=== PATIENT | male | born 1945 | race Caucasian/White ===

== ENCOUNTER → 2019-08-17 10:34 | Outpatient (BNVA) | payer MEDICARE, OTHER, SELFPAY | PROVIDERS: PCP Nurse Practitioner Family; Visit Provider Nurse Practitioner Family | DX: I12.9 Hypertensive chronic kidney disease with stage 1 through stage 4 chronic kidney disease, or unspecified chronic kidney disease (principal); N18.3 Chronic kidney disease, stage 3 (moderate); E78.2 Mixed hyperlipidemia; E55.9 Vitamin D deficiency, unspecified; R73.9 Hyperglycemia, unspecified; Z87.891 Personal history of nicotine dependence; Z53.20 Procedure and treatment not carried out because of patient's decision for unspecified reasons | CPT/HCPCS: 80053; 80061; 82306; 83036; 85025 ==

== ENCOUNTER → 2020-02-15 11:43 | Outpatient (BNVA) | payer MEDICARE, OTHER, SELFPAY | PROVIDERS: PCP Nurse Practitioner Family; Visit Provider Nurse Practitioner Family | DX: I10 Essential (primary) hypertension (principal); E78.2 Mixed hyperlipidemia; E55.9 Vitamin D deficiency, unspecified; R60.0 Localized edema; Z68.30 Body mass index [BMI] 30.0-30.9, adult; F17.220 Nicotine dependence, chewing tobacco, uncomplicated | CPT/HCPCS: 80053; 80061; 82306; 85025 ==

== ENCOUNTER → 2020-03-02 09:46 | Outpatient (BNVA) | payer MEDICARE, OTHER, SELFPAY | PROVIDERS: PCP Nurse Practitioner Family; Visit Provider Nurse Practitioner Family | DX: R73.9 Hyperglycemia, unspecified (principal); E78.2 Mixed hyperlipidemia; I12.9 Hypertensive chronic kidney disease with stage 1 through stage 4 chronic kidney disease, or unspecified chronic kidney disease; N18.3 Chronic kidney disease, stage 3 (moderate); R60.0 Localized edema; Z68.30 Body mass index [BMI] 30.0-30.9, adult; F17.220 Nicotine dependence, chewing tobacco, uncomplicated; Z71.89 Other specified counseling | CPT/HCPCS: 83036 ==

== ENCOUNTER → 2020-04-06 09:23 | Outpatient (BNVA) | payer MEDICARE, OTHER, SELFPAY | PROVIDERS: PCP Nurse Practitioner Family; Visit Provider Urology | DX: R33.9 Retention of urine, unspecified (principal); C61 Malignant neoplasm of prostate; N35.012 Post-traumatic membranous urethral stricture | CPT/HCPCS: 81001; 84153 ==

== ENCOUNTER → 2020-08-08 09:07 | Outpatient (BNVA) | payer MEDICARE, OTHER, SELFPAY | PROVIDERS: PCP Nurse Practitioner Family; Visit Provider Nurse Practitioner Family | DX: I10 Essential (primary) hypertension (principal); R73.9 Hyperglycemia, unspecified | CPT/HCPCS: 80053; 80061; 83036; 85025 ==

== ENCOUNTER 2021-01-13 10:28 | Inpatient (IN) | payer MEDICARE, OTHER, SELFPAY ==
[2021-01-13] VITALS (12 sets, daily range): BP systolic 101–152; BP diastolic 59–96; PULSE 72–124; RESP 14–29; TEMP 36.6–37.3; O2SAT 93–99; BMI 31.5
--- NOTE | 2021-01-13 10:37 | ECG_ITS ---
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 Measurements Intervals [place] Rate: 113 P: NV: QRS: 33 QRSD: 92 T: 29 QT: 313 QTc: 429 Interpretive Statements ATRIAL FIBRILLATION WITH RAPID VENTRICULAR RESPONSE NONSPECIFIC ST & T-WAVE ABNORMALITY ABNORMAL RHYTHM ECG No previous ECG available for comparison Electronically Signed On 01-14-2021 23:03:50 CDT by Divya Hill M.D. [id number]
--- NOTE | 2021-01-13 10:37 | XR_ITS ---
WS: [id number] Portable AP upright chest, 01/13/2021 Clinical Data: dyspnea/cough Comparison: None. Findings: No nodules, masses or effusions are seen. The heart is normal. The pulmonary vascularity is not increased. No pneumonia or pneumothorax is seen. The aortic arch and descending aorta were tortu ous. XR/XR chest 1V portable [id number] Impression: Atherosclerosis
--- NOTE | 2021-01-13 10:38 | W.ED.GENADLT ---
HPI - General Adult General: Chief complaint: Dizziness Stated complaint: WEAKNESS/ DIZZINESS/ FALLS Time Seen by Provider: 01/13/21 10:31 History of Present Illness: HPI narrative: 75-year-old male presents emergency room with complaints of generalized weakness and dizziness. He fell last night and basically was down overnight around 10 hours. He was unable to get up he does not relate any particular pain anywhere but he does relate some weakness to his left arm. His started on arrival in the monitor to appear to be in atrial fibrillation. He denies any chest pain EMS reported he was 89% in the field however on room air here he is 96-97% Onset (ago): hour(s) Severity: moderate Relieving factors: rest Exacerbating factors: none Associated symptoms: Deny chest pain, confusion, cough, diaphoresis, decreased appetite, dyspnea, fevers/chills, headache(s), malaise, nausea, rash, palpitations, seizures, short of breath, syncope, vomiting or weakness Treatments prior to arrival: none Review of Systems Const: Denies: malaise or diaphoresis ENMT: Denies: throat pain, ear or mastoid pain, nasal discharge or nasal congestion Card: Denies: chest pain, palpitations or syncope Resp: Denies: dyspnea GI: Denies: nausea or vomiting : Denies: flank pain, dysuria, urinary frequency or urinary urgency Skin/Breast: Denies: rash Neuro: Denies: headache(s) or confusion PFS ED PFSH: Medical History Bilateral primary osteoarthritis of knee CA of prostate diagnosed August 2007 History of radiotherapy Chronic kidney disease, stage 3 (moderate) Essential (primary) hypertension GERD (gastroesophageal reflux disease) History of skin cancer Hyperglycemia Mixed hyperlipidemia Post-traumatic membranous urethral stricture Psoriasis Vitamin D deficiency Surgical History History of prostate biopsy Hx of vasectomy Family History Father , age 80 CAD (coronary artery disease) Mother , age 71 CAD (coronary artery disease) Social History Smoking and tobacco status: current every day smoker smokeless tobacco Smokeless tobacco user: chewing tobacco Smokeless tobacco details: chewing approx 12 yrs Second hand smoke exposure: No Alcohol intake: current Alcohol intake frequency: 3 or more drinks per day Alcohol type: beer and hard liquor Lives independently: Yes Household members: none Marital status: service: Yes branch: [employer] Current occupational status: retired History of recent travel: No Current gender identity: Male Physical Exam Const: COMMON NORMALS: no acute distress GENERAL APPEARANCE: cooperative and comfortable ORIENTATION/CONSCIOUSNESS: Yes awake, Yes oriented to person, Yes oriented to place and Yes oriented to time HENMT: COMMON NORMALS: normocephalic, atraumatic and hearing grossly normal bilaterally HEAD & SCALP: normocephalic and atraumatic Neck/C-Spine: COMMON NORMALS: no JVD Resp: COMMON NORMALS: normal respiratory effort, No retractions, No use of accessory muscles and clear to auscultation bilaterally AUSCULTATION: clear to auscultation bilaterally Cardio: COMMON NORMALS: no JVD, regular rate, regular rhythm and No murmurs present (Cardio) RATE: regular rate RHYTHM: regular rhythm GI: COMMON NORMALS: Soft to palpation and No hepatosplenomegaly present AUSCULTATION: Yes normoactive bowel sounds PALPATION: Yes Soft to palpation, No Tenderness to palpation present (GI), No Guarding due to palpation present (GI) and Yes No hepatosplenomegaly present Extremity: COMMON NORMALS: normal to inspection, capillary refill normal, no clubbing, cyanosis or edema, no calf tenderness and no pedal edema Neuro: SENSORIUM/ORIENTATION: Yes oriented to person, Yes oriented to place and Yes oriented to time Skin: COMMON NORMALS: no rashes or lesions noted GENERAL SKIN EXAM: no rashes or lesions noted Course Vital Signs: Vital signs: Vital Signs Temperature 97.8 F 01/14/21 11:14 Pulse Rate 82 01/14/21 11:14 Respiratory Rate 28 H 01/14/21 11:14 Blood Pressure 115/64 01/14/21 11:14 Pulse Oximetry 99 01/14/21 11:14 MDM - General Adult MDM Narrative: Medical decision making narrative: Patient has rhabdomyolysis acute on chronic kidney injury with the fall generalized weakness unable to stand and go ahead and admit him discussed Dr. Paulino. Lab Data: Labs: Lab Results 06/06/2501/13/21 01/13/21 Range/Units 10:45 10:45 10:45 WBC 16.6 H (4.0-10.0) 10^3/ uL RBC 3.80 L (4.1-5.3) 10^6/u L Hgb 11.8 (11.7-16.6) g/dL Hct 35.3 L (42.0-52.0) % MCV 92.9 (80-94) fL MCH 31.1 (28.0-34.0) pg MCHC 33.4 (30.0-36.0) g/dL RDW 14.3 (12.1-15.1) % Plt Count 436 H (130-400) 10^3/c mm MPV 10.0 (7.4-10.4) fL Neut % (Auto) 94.1 % Lymph % (Auto) 1.1 % Faulkner % (Auto) 1.8 % Eos % (Auto) 0.0 % Baso % (Auto) 0.5 % Neut # (Auto) 15.58 H (1.8-7.7) 10^3/u L Lymph # (Auto) 0.2 L (0.8-4.8) 10^3/u L Faulkner # (Auto) 0.3 (0.2-0.9) 10^3/u L Eos # (Auto) 0.0 (0.0-0.8) 10^3/u L Baso # (Auto) 0.1 (0.0-0.1) 10^3/u L Nucleated RBC % (a uto) 0 % Nucleated RBCs # 0.0 /100WBC Sodium 130 L (136-145) mmol/L Potassium 3.5 (3.5-5.1) mmol/L Chloride 95 L (98-107) mmol/L Carbon Dioxide 20 L (22-29) mmol/L Anion Gap 18.5 (5-19) BUN 53 H (8-23) mg/dL Creatinine 2.3 H (0.7-1.2) mg/dL GFR Calculation Not Reportable Glucose 146 H (65-115) mg/dL Calculated Osmolal ity 287 (285-295) mOsm/k g Calcium 8.6 (8.5-10.5) mg/dL Magnesium 2.0 (1.7-2.3) mg/dL Total Bilirubin 1.5 H (0.15-1.2) mg/dL AST 66 H (0-40) U/L ALT 23 (0-41) U/L Alkaline Phosphata se 166 H (40-130) IU/L Creatine Kinase 2423 H* (39-308) U/L Troponin T Baselin e 137 H* (0-15) ng/L Troponin T 120 Min ambler (0-15) ng/L Delta Troponin T (0-10) ABS# Total Protein 5.9 L (6.6-8.7) g/dL Albumin 3.2 L (3.5-5.2) g/dL Globulin 2.7 (1.3-4.6) g/dL TSH (0.27-4.20) uIU/ mL Urine Color (Yellow) Urine Appearance (CLEAR) Urine pH (5-7) Ur Specific Gravit y (1.005-1.030) Urine Protein (Negative) Urine Glucose (UA) (Normal) Urine Ketones (Negative) Urine Blood (Negative) Urine Nitrate (Negative) Urine Bilirubin (Negative) Urine Urobilinogen (Negative) mg/dL Ur Leukocyte Caroline ase (Negative) Urine RBC (0-2) /hpf Urine WBC (0-5) /hpf Ur Squamous Epith Cells (0-5) /hpf Amorphous Sediment Urine Bacteria (NONE) /hpf 01/13/21 01/13/21 01/13/21 Range/Units 10:45 11:05 11:35 WBC (4.0-10.0) 10^3/ uL RBC (4.1-5.3) 10^6/u L Hgb (11.7-16.6) g/dL Hct (42.0-52.0) % MCV (80-94) fL MCH (28.0-34.0) pg MCHC (30.0-36.0) g/dL RDW (12.1-15.1) % Plt Count (130-400) 10^3/c mm MPV (7.4-10.4) fL Neut % (Auto) % Lymph % (Auto) % Faulkner % (Auto) % Eos % (Auto) % Baso % (Auto) % Neut # (Auto) (1.8-7.7) 10^3/u L Lymph # (Auto) (0.8-4.8) 10^3/u L Faulkner # (Auto) (0.2-0.9) 10^3/u L Eos # (Auto) (0.0-0.8) 10^3/u L Baso # (Auto) (0.0-0.1) 10^3/u L Nucleated RBC % (a uto) % Nucleated RBCs # /100WBC Sodium (136-145) mmol/L Potassium (3.5-5.1) mmol/L Chloride (98-107) mmol/L Carbon Dioxide (22-29) mmol/L Anion Gap (5-19) BUN (8-23) mg/dL Creatinine (0.7-1.2) mg/dL GFR Calculation Glucose (65-115) mg/dL Calculated Osmolal ity (285-295) mOsm/k g Calcium (8.5-10.5) mg/dL Magnesium (1.7-2.3) mg/dL Total Bilirubin (0.15-1.2) mg/dL AST (0-40) U/L ALT (0-41) U/L Alkaline Phosphata se (40-130) IU/L Creatine Kinase (39-308) U/L Troponin T Baselin e (0-15) ng/L Troponin T 120 Min ambler 126.4 H (0-15) ng/L Delta Troponin T -10.6 L (0-10) ABS# Total Protein (6.6-8.7) g/dL Albumin (3.5-5.2) g/dL Globulin (1.3-4.6) g/dL TSH 0.35 (0.27-4.20) uIU/ mL Urine Color Yellow (Yellow) Urine Appearance Clear (CLEAR) Urine pH 5 (5-7) Ur Specific Gravit y 1.010 (1.005-1.030) Urine Protein 1+ H (Negative) Urine Glucose (UA) Norm (Normal) Urine Ketones Negative (Negative) Urine Blood 3+ H (Negative) Urine Nitrate Negative (Negative) Urine Bilirubin 1+ H (Negative) Urine Urobilinogen 1 H (Negative) mg/dL Ur Leukocyte Caroline ase 2+ H (Negative) Urine RBC 5-10 H (0-2) /hpf Urine WBC 10-15 H (0-5) /hpf Ur Squamous Epith Cells 0-4 H (0-5) /hpf Amorphous Sediment Not Reportable Urine Bacteria 2+ H (NONE) /hpf Discharge Plan Discharge Patient Disposition: Admitted As Inpatient Admit Provider: Alex Majano Clinical Impression: Rhabdomyolysis, Weakness, Fall, Chronic kidney disease, stage 3 (moderate), Acute kidney injury, Atrial fibrillation, Hyponatremia Condition: Stable Coding Level of Care Code ED 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
[2021-01-13 10:59] LABS: Basophils # 0.1 10^3/uL (0.0-0.1); Basophils % 0.5 %; Hematocrit 35.3 % (42.0-52.0); Hemoglobin 11.8 g/dL (11.7-16.6); Lymphocytes # 0.2 10^3/uL (0.8-4.8); Lymphocytes % 1.1 %; Mean Corpuscular HGB Conc 33.4 g/dL (30.0-36.0); Mean Corpuscular Hemoglobin 31.1 pg (28.0-34.0); Mean Corpuscular Volume 92.9 fL (80-94); Monocytes # 0.3 10^3/uL (0.2-0.9); Monocytes % 1.8 %; Neutrophils # 15.58 10^3/uL (1.8-7.7); Neutrophils % 94.1 %; Nucleated Red Blood Cells % 0 %; Platelet Count 436 10^3/cmm (130-400); Red Cell Distribution Width 14.3 % (12.1-15.1); White Blood Count 16.6 10^3/uL (4.0-10.0)
[2021-01-13 11:12] LABS: Alanine Aminotransferase 23 U/L (0-41); Albumin Level 3.2 g/dL (3.5-5.2); Alkaline Phosphatase 166 IU/L (40-130); Anion Gap 18.5 (5-19); Aspartate Amino Transferase 66 U/L (0-40); Blood Urea Nitrogen 53 mg/dL (8-23); Calcium 8.6 mg/dL (8.5-10.5); Carbon Dioxide 20 mmol/L (22-29); Chloride 95 mmol/L (98-107); Globulin 2.7 g/dL (1.3-4.6); Glucose 146 mg/dL (65-115); Osmolality Calculated 287 mOsm/kg (285-295); Potassium 3.5 mmol/L (3.5-5.1); Sodium 130 mmol/L (136-145); Total Bilirubin 1.5 mg/dL (0.15-1.2); Total Protein 5.9 g/dL (6.6-8.7)
[2021-01-13 11:27] LABS: Creatine Phosphokinase 2423 U/L (39-308); Troponin(5th) Baseline 137 ng/L (0-15)
[2021-01-13 11:52] LABS: Protein Urine 1+ (Negative); Urine Appearance Clear (CLEAR); Urine Color Yellow (Yellow); pH Urine 5 (5-7)
[2021-01-13 11:53] LABS: Add Urine Microscopic? YES; Bilirubin Urine 1+ (Negative); Blood Urine 3+ (Negative); Glucose Urine UA Norm (Normal); Ketones Urine Negative (Negative); Leukocyte Esterase Urine 2+ (Negative); Nitrate Urine Negative (Negative); Urobilinogen Urine 1 mg/dL (Negative)
[2021-01-13] MEDS: sodium chloride 0.9% 1,000 ML 999 ML IV (11:55)
--- NOTE | 2021-01-13 12:02 | CT_ITS ---
WS: [id number] CT HEAD NONCONTRAST HISTORY: weakness, fall, L hand weakness TECHNIQUE: Contiguous axial imaging performed through the brain in 2.5 mm imaging. Bone and soft tiss ue windows. Sagittal and coronal reformats reviewed. All CT scans at [facility] use at le ast one of these dose optimization techniques: automated exposure control; mA and/or kV adjustment pe r patient size (includes targeted exams where dose is matched to clinical indication); or iterative r econstruction. DLP: 825.8 mGy.cm COMPARISON: None available. No acute intracranial hemorrhage, midline shift or mass effect. Mild atrophy and mild chronic microvascular ischemic disease. Small lacunar infarcts in the basal papito glia. Ventricles: Normal size with no hydrocephalus. Mild atherosclerosis intracranial carotid arteries. Paranasal sinuses: As visualized are clear. Mastoid air cells: Well pneumatized. Calvarium and scalp: Skull is intact with no soft tissue edema or swelling. CT/CT head wo con* [id number] IMPRESSION: 1. No acute intracranial hemorrhage or edema. 2. Mild atrophy and chronic ischemic disease.
[2021-01-13 12:03] LABS: Add Urine Culture? Yes; Bacteria Urine 2+ /hpf; Squamous Epithelial Cell Urine 0-4 /hpf (0-5)
--- NOTE | 2021-01-13 12:07 | P.HP_ITS ---
Providers/Chief Complaint Primary Care Provider: TAMANNA Benitez Chief Complaint: WEAKNESS/ DIZZINESS/ FALLS History of Present Illness Darien Recinos is a 75 year old male who presents to the hospital with complaints of weakness. Patient reports during the night he was so weak that he lowered himself to the floor and stayed in the floor all night. He reports he has been significantly weak for the last week. He has had several episodes of vomiting the last several days. He has felt short of breath 2 or 3 weeks. He denies any fevers. He reports he has some renal insufficiency and difficulty urinating with urethral stricture and is supposed to catheterize himself once daily or more but has not always gotten to this. He denies any true syncope. He denies any chest discomfort, or significant cough. He reports no exposure to Covid. He has had no recent medication changes. He does report he usually drinks a fair amount sometimes up to a pint of whiskey a day but has not been drinking as much lately. Of note he did not take his metoprolol this morning. He reports no past history of atrial fibrillation. In the emergency department he has received a dose of Rocephin for possible UTI, and some IV fluids. Review of Systems General: Reports: 10 or more systems reviewed and unremarkable except in HPI and below Const: Reports: malaise; Denies: fever(s) or chills Eyes: Denies: change in vision ENMT: Denies: throat pain Card: Denies: chest pain Resp: Reports: dyspnea; Denies: productive cough or non-productive cough GI: Reports: vomiting; Denies: abdominal pain or diarrhea : Reports: difficulty urinating; Denies: flank pain Musc: Denies: neck pain Skin/Breast: Denies: rash Neuro: Denies: headache(s) Psych: Denies: anxiety or depression Endo: Denies: polyuria Addison/Lymph: Denies: easy bruising Medications/Allergies Home Medications Medication Instructions Recorded Confirmed Last Taken Type aspirin 81 mg tablet,delayed 81 mg PO QPM 08/17/19 01/13/21 Unknown History release atorvastatin 20 mg tablet 20 mg PO DAILY #30 tab 08/09/20 01/13/21 01/12/21 Rx hydrochlorothiazide 12.5 mg tablet 12.5 mg PO QAM #30 tab 08/09/20 01/13/2101/12/21 Rx lisinopril 20 mg tablet 20 mg PO BID #60 tab 08/09/20 01/13/21 01/12/21 Rx metoprolol tartrate 100 mg tablet 100 mg PO BID #60 tab 08/09/20 01/13/21 01/12/21 Rx acetaminophen [Tylenol Extra 1,000 mg PO PRN 01/13/21 01/13/21 01/12/21 History Strength] diphenhydramine HCl [Benadryl] 50 mg PO PRN 01/13/21 01/13/21 01/12/21 History hydrocodone-acetaminophen [Mitchell] 1 tab PO Q4H PRN 01/13/21 01/13/21 Unknown History Allergies Allergy/AdvReac Type Severity Reaction Status Date / Time No Known Allergies Allergy Verified 01/13/21 11:03 PFSH Acute PFSH: Medical History (Updated 01/13/21 @ 12:54 by Alex Majano MD) Bilateral primary osteoarthritis of knee CA of prostate diagnosed August 2007 History of radiotherapy Chronic kidney disease, stage 3 (moderate) Essential (primary) hypertension GERD (gastroesophageal reflux disease) History of skin cancer Hyperglycemia Mixed hyperlipidemia Post-traumatic membranous urethral stricture Psoriasis Vitamin D deficiency Surgical History (Updated 01/13/21 @ 12:46 by Alex Majano MD) History of prostate biopsy Hx of vasectomy Family History Father , age 80 CAD (coronary artery disease) Mother , age 71 CAD (coronary artery disease) Social History (Updated 01/13/21 @ 12:47 by Alex Majano MD) Smoking and tobacco status: current every day smoker smokeless tobacco Smokeless tobacco user: chewing tobacco Smokeless tobacco details: chewing approx 12 yrs Second hand smoke exposure: No Alcohol intake: current Alcohol intake frequency: 3 or more drinks per day Alcohol type: beer and hard liquor Lives independently: Yes Household members: none Marital status: service: Yes branch: [employer] Current occupational status: retired History of recent travel: No Current gender identity: Male Vitals/I&O/Wt Last Vital Signs Temp 98.9 F 01/13/21 10:36 Pulse 117 H 01/13/21 11:34 Resp 18 01/13/21 11:34 BP 103/70 01/13/21 11:34 Pulse Ox 97 01/13/21 11:34 Weight last 48 hrs Weight 99.79 kg Physical Exam Narrative: EXAM NARRATIVE: General exam is a weak appearing male, in no apparent distress HEENT: Atraumatic normocephalic, pupils equally round. Oropharynx is clear. Mucous membranes appear slightly dry. Neck is supple no lymphadenopathy or thyromegaly Cardiovascular tachycardic, irregular. No obvious murmur Lungs clear without wheezing or crackles Abdomen is soft, positive bowel sounds. No obvious organomegaly is deferred Extremities no cyanosis clubbing or significant edema, cap refill brisk Skin no rash Neuro no focal deficits Data : 01/13/21 10:45 01/13/21 10:45 Other data: Bilirubin 1.5, AST 66, ALT 23, alk phos 166, CK 2423, troponin I 37 at baseline. Albumin 3.2. Magnesium 2.0. Calcium 8.6. Urinalysis demonstrates 2+ leukocyte esterase, 5-10 red blood cells and 10-15 white blood cells. 2+ bacteria is noted. Head CT no acute findings Chest x-ray reviewed by myself demonstrates no obvious infiltrate, some atherosclerotic changes are noted in the aorta. EKG demonstrates atrial fibrillation with rapid ventricular rate, normal axis, nonspecific ST-T wave flattening A&P Assessment and plan (1) Weakness: Severe weakness is likely multifactorial. Could be secondary to UTI, concomitant renal failure, alcohol intake and hyponatremia. Hydration Close monitoring of sodium Physical therapy evaluation. Status: Acute (2) Fall: Mechanical fall, no significant injuries. Did not have syncopal episode. Status: Acute (3) Acute kidney injury: Acute on chronic kidney insufficiency. Hydration, close follow-up of creatinine Place Vasquez as patient has history of urethral stricture for which he self catheterizes once per day at minimum but has been failing to do so as of late. Hold KAREN inhibitor at this time Status: Acute (4) Rhabdomyolysis: Hydration Repeat CK tomorrow Hold statin until this is resolved Status: Acute (5) Atrial fibrillation: Patient has not taken his metoprolol this morning. He does not have a past history of atrial fibrillation. Metoprolol 25 mg once daily currently Heparin subcu for DVT prophylaxis Consider full dose anticoagulation, although this may have increased risks considering his alcohol intake and history of falls. Check TSH Check echocardiogram Status: Acute (6) Hyponatremia: Close monitoring of sodium. Status: Acute (7) UTI (urinary tract infection): Associated with leukocytosis Urine culture Blood culture Rocephin IV every 24 hours Status: Acute (8) Elevated troponin: May be type II. Trend with troponins. Status: Acute (9) Alcoholism: Thiamine, folate. Monitor for withdrawal. Status: Acute Additional A&P Information Elevated bilirubin, AST. May be secondary to downtime, rhabdo, renal insufficiency. Recheck tomorrow. History of hyperglycemia, last A1c borderline. Consistent carb diet. Full code Heparin for DVT prophylaxis Attestations Medical Necessity Statement*: Will require greater than 2 midnight stay secondary to electrolyte abnormalities, new onset atrial fibrillation, hyponatremia, weakness, UTI and multiple other comorbidities. Time Spent in Patient Care: Greater than 35 minutes Coding Level of Care Code Acute Custom Furrier for g Fwd Diagnoses Weakness R53.1 Fall W19.XXXA Acute kidney injury N17.9 Rhabdomyolysis M62.82 Atrial fibrillation I48.91 Hyponatremia E87.1 UTI (urinary tract infection) N39.0 Elevated troponin R77.8 Alcoholism F10.20
[2021-01-13] MEDS: cefTRIAXone 1,000 MG in sodium chloride 0.9% (plus) 50 ML 100 MG IV (12:20)
--- NOTE | 2021-01-13 12:37 | ECG_ITS ---
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 Measurements Intervals Supply Rate: P: MA: QRS: 0 QRSD: T: 0 QT: QTc: Interpretive Statements SINUS RHYTHM NON SPECIFIC ST-T WAVE ABNORMALITY ATYPICAL ECG WARNING: DATA QUALITY MAY AFFECT INTERPRETATION Compared to ECG 01/13/2021 10:49:20 Atrial fibrillation no longer present T-wave abnormality no longer present Electronically Signed On 01-16-2021 23:14:52 CDT by Divya Hill M.D. [id number]
[2021-01-13 12:52] LABS: Thyroid Stimulating Hormone 0.35 uIU/mL (0.27-4.20)
[2021-01-13] MEDS: metoprolol tartrate 25 mg Tablet PO (13:10)
--- NOTE | 2021-01-13 13:30 | USCV_ITS ---
Darien Recinos Age: 75 Gender: M : 1945 Exam Date: 01/13/2021 15:15 Ordering Phys: Alex Majano MD Technologist: Mildred Bullock [place] [facility] [place] new onset a fib BP: 129 / 92 HR: 91 Rhythm: Sinus Technical Quality: Fair MEASUREMENTS (Male / Female) Normal Values 2D ECHO LV Diastolic Diameter PLAX 3.5 cm 4.2 - 5.9 / 3.9 - 5.3 cm LV Systolic Diameter PLAX 2.0 cm IVS Diastolic Thickness 1.5 cm 0.6 - 1.0 / 0.6 - 0.9 cm IVS Systolic Thickness 2.3 cm LVPW Diastolic Thickness 1.2 cm 0.6 - 1.0 / 0.6 - 0.9 cm LVPW Systolic Thickness 1.8 cm LVOT Diameter 2.1 cm LV Ejection Fraction 2D Teich 74.5 % LV Ejection Fraction MOD 2C 84.7 % LV Ejection Fraction 2C AL 85.0 % LA Diameter 3.1 cm LA Width 2.5 cm LA Height 5.2 cm RA Width 3.4 cm RA Height 5.2 cm Aorta at Sinotubular Diameter 4.1 cm DOPPLER AV Peak Velocity 172.0 cm/s LVOT Peak Velocity 104.0 cm/s AV Area Cont Eq vti 2.7 cm squared AV Area Cont Eq pk 2.2 cm squared MV Peak Velocity 111.0 cm/s MV Area PHT 3.2 cm squared Mitral E to A Ratio 20.4 MV E' Velocity 64.5 cm/s Mitral E to MV E' Ratio 7.3 Mitral E to LV E' Lateral Ratio 8.8 Mitral E to LV E' Septal Ratio 6.3 TR Peak Velocity 189.6 cm/s TR Peak Gradient 14.4 mmHg TR Mean Velocity 146.7 cm/s TR Mean Gradient 9.7 mmHg TR Velocity Time Integral 28.1 cm Right Atrial Pressure 3.0 mmHg Pulmonary Artery Systolic Pressu 17.4 mmHg PV Peak Velocity 113.0 cm/s RV Acceleration Time 0.1 s RV Ejection Time 0.2 s RV AcT/ET 0.3 FINDINGS Left Ventricle Normal left ventricular size and systolic function with no diagnostic regional wall motion abnormalities. Left ventricular ejection fraction is estimated at 65 %. Normal diastolic function. Right Ventricle Normal right ventricular size and systolic function. Right ventricular systolic pressure 17.4 mmHg. Right Atrium Normal right atrial size. Right atrial pressure estimated at 3 mm Hg. Left Atrium Normal left atrial size. Mitral Valve Mitral valve not well visualized. No mitral valve stenosis. No mitral valve regurgitation. Aortic Valve Aortic valve not well visualized. No aortic valve stenosis. Mild aortic valve regurgitation. Tricuspid Valve Tricuspid valve not well visualized. Pulmonic Valve Pulmonic valve not well visualized. Pericardium No pericardial effusion. Normal sized inferior vena cava. Aorta Normal size aortic root and proximal ascending aorta. CONCLUSIONS 1. Normal left ventricular size and systolic function with no diagnostic regional wall motion abnormalities. Left ventricular ejection fraction is estimated at 65 %. Normal diastolic function. 2. Normal pulmonary artery pressure. 3. Mild aortic valve regurgitation. 4. No prior similar studies to compare. Divya Hill MD (Electronically Signed) Final Date: 13 January 2021 18:10 S
[2021-01-13 13:42] LABS: Troponin 5 2HR 126.4 ng/L (0-15); Troponin 5 2HR Delta -10.6 ABS# (0-10)
[2021-01-13] MEDS: heparin 5,000 unit/mL INJ 1 mL 5000 UNIT SUBCUT (15:13)
[2021-01-13] MEDS: sodium chloride 0.9% 1,000 ML 75 ML IV (15:21)
--- NOTE | 2021-01-13 16:37 | ECG_ITS ---
[facility] Test Date: 2021-01-13 Pat Name: Darien Recinos Department: Room: 111 Gender: Male Orthopedically Impaired Teacher: : 1945 Requested By: Marcio Gonzalez Order Number: [id number] Kylee MD: Divya Hill M.D. Measurements Intervals Pep Rate: 79 P: NV: QRS: 38 QRSD: 85 T: 40 QT: 356 QTc: 409 Interpretive Statements ATRIAL FIBRILLATION NONSPECIFIC ST & T-WAVE ABNORMALITY ABNORMAL RHYTHM ECG Compared to ECG 01/13/2021 12:04:25 T-wave abnormality now present Electronically Signed On 01-14-2021 23:15:06 CDT by Divya Hill M.D. [id number]
[2021-01-13 16:58] LABS: Troponin 5 6HR 112.5 ng/L (0-15); Troponin 5 6HR Delta -24.5 ng/L (0-12)
[2021-01-13] MEDS: metoprolol tartrate 50 mg Tablet 100 MG PO (18:36)
[2021-01-13] MEDS: aspirin 81 mg EC Tablet PO (18:36)
--- NOTE | 2021-01-13 19:49 | PC.NURSE ---
ER nurse attempted to place weinberg catheter in patient twice and was unsuccessful. Nurse on first floor attempted once with a coude catheter and was still unsuccessful. patient has been able to void sense being present on the floor.
[2021-01-14] VITALS (11 sets, daily range): BP systolic 98–136; BP diastolic 57–83; PULSE 72–109; RESP 20–28; TEMP 36.6–37.1; O2SAT 97–100
[2021-01-14] MEDS: sodium chloride 0.9% 1,000 ML 75 ML IV (02:02)
[2021-01-14] MEDS: heparin 5,000 unit/mL INJ 1 mL 5000 UNIT SUBCUT ×2 (02:03→13:35)
[2021-01-14 05:17] LABS: Basophils # 0.1 10^3/uL (0.0-0.1); Basophils % 0.4 %; Eosinophils % 0.2 %; Hematocrit 32.5 % (42.0-52.0); Hemoglobin 10.8 g/dL (11.7-16.6); Lymphocytes # 0.6 10^3/uL (0.8-4.8); Lymphocytes % 4.6 %; Mean Corpuscular HGB Conc 33.2 g/dL (30.0-36.0); Mean Corpuscular Hemoglobin 31.6 pg (28.0-34.0); Mean Platelet Volume 9.8 fL (7.4-10.4); Monocytes # 0.7 10^3/uL (0.2-0.9); Monocytes % 6.1 %; Neutrophils # 10.43 10^3/uL (1.8-7.7); Neutrophils % 86.4 %; Nucleated Red Blood Cells % 0 %; Platelet Count 356 10^3/cmm (130-400); Red Blood Count 3.42 10^6/uL (4.1-5.3); Red Cell Distribution Width 14.8 % (12.1-15.1); White Blood Count 12.1 10^3/uL (4.0-10.0)
[2021-01-14 05:44] LABS: Alanine Aminotransferase 32 U/L (0-41); Albumin Level 2.5 g/dL (3.5-5.2); Alkaline Phosphatase 120 IU/L (40-130); Anion Gap 15.5 (5-19); Aspartate Amino Transferase 111 U/L (0-40); Blood Urea Nitrogen 53 mg/dL (8-23); Calcium 8.3 mg/dL (8.5-10.5); Carbon Dioxide 23 mmol/L (22-29); Chloride 100 mmol/L (98-107); Globulin 3.2 g/dL (1.3-4.6); Glucose 114 mg/dL (65-115); Magnesium 2.1 mg/dL (1.7-2.3); Osmolality Calculated 295 mOsm/kg (285-295); Potassium 3.5 mmol/L (3.5-5.1); Sodium 135 mmol/L (136-145); Total Bilirubin 0.6 mg/dL (0.15-1.2); Total Protein 5.7 g/dL (6.6-8.7)
[2021-01-14 05:55] LABS: Creatine Phosphokinase 1976 U/L (39-308)
[2021-01-14] MEDS: thiamine 100 mg Tablet PO (09:27)
[2021-01-14] MEDS: cefTRIAXone 1,000 MG in sodium chloride 0.9% (plus) 50 ML 100 MG IV (09:27)
[2021-01-14] MEDS: folic acid 1 mg Tablet PO (09:28)
[2021-01-14] MEDS: metoprolol tartrate 50 mg Tablet 100 MG PO ×2 (09:28→18:05)
--- NOTE | 2021-01-14 12:09 | P.PN_ITS ---
Subjective Subjective: Interval history: Patient was seen and examined this morning. Continues to complain of severe generalized weakness. Vitals and labs have been reviewed Medications: Reviewed: Yes Vitals/I&O/Wt Last Vital Signs Temp 97.8 F 01/14/21 11:14 Pulse 82 01/14/21 11:14 Resp 28 H 01/14/21 11:14 BP 115/64 01/14/21 11:14 Pulse Ox 99 01/14/21 11:14 01/13/21 01/14/21 01/14/21 22:59 06:59 14:59 Intake Total 801.25 / 1851.25 845 / 845 Output Total 400 / 400 600 / 600 Balance -400 / 650 801.25 / 1451.25 245 / 245 Weight last 48 hrs Weight 99.79 kg Physical Exam Const: COMMON NORMALS: patient oriented x3 HENMT: COMMON NORMALS: normocephalic and atraumatic HEAD & SCALP: normocephalic and atraumatic Chest: CHEST: Yes Symmetrical chest wall rise Resp: COMMON NORMALS: clear to auscultation bilaterally EFFORT & INSPECTION: Yes symmetric chest movement AUSCULTATION: clear to auscultation bilaterally Cardio: COMMON NORMALS: regular rate, regular rhythm, S1 normal heart sound present, S2 normal heart sound present, No gallops present (Cardio), No murmurs present (Cardio), No rub (Cardio) and Peripheral pulses 2+ throughout RATE: regular rate RHYTHM: regular rhythm HEART SOUNDS: S1 normal heart sound present and S2 normal heart sound present PERIPHERAL PULSES: Peripheral pulses 2+ throughout GI: COMMON NORMALS: Normal to inspection, nondistended, normoactive bowel sounds present, Soft to palpation, non-tender, No hepatosplenomegaly present and no masses AUSCULTATION: Yes normoactive bowel sounds PALPATION: Yes Soft to palpation and Yes No hepatosplenomegaly present RECTAL EXAM: Yes deferred Extremity: COMMON NORMALS: no clubbing, cyanosis or edema and no pedal edema Neuro: COMMON NORMALS: patient oriented x3 Data : 01/14/21 05:06 01/14/21 05:06 Micro: Microbiology 01/13/21 11:35 Urine Culture - Preliminary Urine,Clean Catch Gram Negative Rods 01/13/21 11:00 Blood Culture - Preliminary Blood SPECIMEN COLLECTED 01/13/21 11:05 Blood Culture - Preliminary Blood SPECIMEN COLLECTED A&P Assessment and plan (1) Weakness: Severe weakness is likely multifactorial. Could be secondary to UTI, concomitant renal failure, alcohol intake and hyponatremia. Hydration Close monitoring of sodium Physical therapy evaluation. Status: Acute (2) Fall: Mechanical fall, no significant injuries. Did not have syncopal episode. Status: Acute (3) Acute kidney injury: Acute on chronic kidney insufficiency. Hydration, close follow-up of creatinine Place Vasquez as patient has history of urethral stricture for which he self catheterizes once per day at minimum but has been failing to do so as of late. Hold KAREN inhibitor at this time Status: Acute (4) Rhabdomyolysis: Hydration Repeat CK tomorrow Hold statin until this is resolved Status: Acute (5) Atrial fibrillation: Patient has not taken his metoprolol this morning. He does not have a past history of atrial fibrillation. Metoprolol 25 mg once daily currently Heparin subcu for DVT prophylaxis Consider full dose anticoagulation, although this may have increased risks considering his alcohol intake and history of falls. TSH: 0.35 Echocardiogram: 01/13: Normal left ventricular size and systolic function with no diagnostic regional wall motion abnormalities. Left ventricular ejection fraction is estimated at 65 %. Normal diastolic function. Normal pulmonary artery pressure. Mild aortic valve regurgitation. Status: Acute (6) Hyponatremia: Close monitoring of sodium. Status: Acute (7) UTI (urinary tract infection): Associated with leukocytosis Urine culture Blood culture Rocephin IV every 24 hours Status: Acute (8) Elevated troponin: May be type II. Trend with troponins. Status: Acute (9) Alcoholism: Thiamine, folate. Monitor for withdrawal. Status: Acute Additional A&P Information Elevated bilirubin, AST. May be secondary to downtime, rhabdo, renal insufficiency. Recheck tomorrow. History of hyperglycemia, last A1c borderline. Consistent carb diet. Full code Heparin for DVT prophylaxis Attestations Medical Necessity Statement*: Patient needs to be in hospital for the management of Fall, VANNA, Rhabdo need for I.V fluids Coding Level of Care Code Acute [employer] Treater for [facility] Fwd Exam Detailed Diagnoses Weakness R53.1 Fall W19.XXXA Acute kidney injury N17.9 Rhabdomyolysis M62.82 Atrial fibrillation I48.91 Hyponatremia E87.1 UTI (urinary tract infection) N39.0 Elevated troponin R77.8 Alcoholism F10.20
[2021-01-14] MEDS: sodium chloride 0.9% 1,000 ML 125 ML IV ×2 (13:30→21:35)
[2021-01-14] MEDS: aspirin 81 mg EC Tablet PO (18:05)
[2021-01-15] VITALS (9 sets, daily range): BP systolic 111–147; BP diastolic 66–76; PULSE 85–114; RESP 18–30; TEMP 36.6–37.1; O2SAT 96–99
[2021-01-15] MEDS: heparin 5,000 unit/mL INJ 1 mL 5000 UNIT SUBCUT ×2 (01:29→15:05)
[2021-01-15] MEDS: sodium chloride 0.9% 1,000 ML 125 ML IV (05:23)
[2021-01-15 05:26] LABS: Basophils % 0.1 %; Eosinophils % 0.1 %; Hematocrit 35.4 % (42.0-52.0); Hemoglobin 11.4 g/dL (11.7-16.6); Lymphocytes # 0.2 10^3/uL (0.8-4.8); Lymphocytes % 1.4 %; Mean Corpuscular HGB Conc 32.2 g/dL (30.0-36.0); Mean Corpuscular Hemoglobin 31.1 pg (28.0-34.0); Mean Corpuscular Volume 96.7 fL (80-94); Mean Platelet Volume 10.4 fL (7.4-10.4); Monocytes # 0.3 10^3/uL (0.2-0.9); Monocytes % 1.7 %; Neutrophils # 15.85 10^3/uL (1.8-7.7); Neutrophils % 94.6 %; Nucleated Red Blood Cells % 0 %; Platelet Count 370 10^3/cmm (130-400); Red Blood Count 3.66 10^6/uL (4.1-5.3); Red Cell Distribution Width 15.2 % (12.1-15.1); White Blood Count 16.8 10^3/uL (4.0-10.0)
[2021-01-15 05:49] LABS: Alanine Aminotransferase 34 U/L (0-41); Albumin Level 2.5 g/dL (3.5-5.2); Alkaline Phosphatase 128 IU/L (40-130); Anion Gap 15.4 (5-19); Aspartate Amino Transferase 86 U/L (0-40); Blood Urea Nitrogen 43 mg/dL (8-23); Calcium 8.2 mg/dL (8.5-10.5); Carbon Dioxide 22 mmol/L (22-29); Chloride 104 mmol/L (98-107); Globulin 3.4 g/dL (1.3-4.6); Glucose 108 mg/dL (65-115); Magnesium 1.9 mg/dL (1.7-2.3); Osmolality Calculated 297 mOsm/kg (285-295); Potassium 3.4 mmol/L (3.5-5.1); Sodium 138 mmol/L (136-145); Total Bilirubin 0.5 mg/dL (0.15-1.2); Total Protein 5.9 g/dL (6.6-8.7)
[2021-01-15 05:55] LABS: Creatine Phosphokinase 329 U/L (39-308)
[2021-01-15] MEDS: thiamine 100 mg Tablet PO (09:04)
[2021-01-15] MEDS: folic acid 1 mg Tablet PO (09:04)
[2021-01-15] MEDS: metoprolol tartrate 50 mg Tablet 100 MG PO ×2 (09:04→17:47)
--- NOTE | 2021-01-15 10:14 | PC.NURSE ---
HR-120s to 140s for about 20-30 mins with PT activity and any activity. Pt has been having freq. loose stools. reported abdominal bloating this morning. stool sample taken. bladder scan pt. no urine retention noted. Notified Dr. Mclean regarding the above assessment. Verbal order to change rate of NS to 50 ml/hr.
[2021-01-15] MEDS: sodium chloride 0.9% 1,000 ML 50 ML IV (10:58)
[2021-01-15] MEDS: levofloxacin-dextrose 5 % 750 MG/150 ML PREMIX 100 MG IV (10:59)
--- NOTE | 2021-01-15 12:41 | PM.PN ---
Subjective Subjective: Interval history: Patient was seen and examined this morning. Continue to be in A.fib with H/R in high 90s to low 100s.Complaining of diarrhea around 5 episodes since last night. Medications: Reviewed: Yes Vitals/I&O/Wt Last Vital Signs Temp 97.9 F 01/15/21 11:25 Pulse 98 01/15/21 11:25 Resp 18 01/15/21 11:25 BP 113/72 01/15/21 11:25 Pulse Ox 99 01/15/21 11:25 01/14/21 01/15/21 01/15/21 22:59 06:59 14:59 Intake Total 1290 / 2820 1475 / 4295 1040 / 1040 Output Total 400 / 1230 700 / 1930 Balance 890 / 1590 775 / 2365 1040 / 1040 Physical Exam Const: COMMON NORMALS: patient oriented x3 HENMT: COMMON NORMALS: normocephalic and atraumatic HEAD & SCALP: normocephalic and atraumatic Chest: CHEST: Yes Symmetrical chest wall rise Resp: COMMON NORMALS: clear to auscultation bilaterally EFFORT & INSPECTION: Yes symmetric chest movement AUSCULTATION: clear to auscultation bilaterally Cardio: COMMON NORMALS: regular rate, regular rhythm, S1 normal heart sound present, S2 normal heart sound present, No gallops present (Cardio), No murmurs present (Cardio), No rub (Cardio) and Peripheral pulses 2+ throughout RATE: regular rate RHYTHM: regular rhythm HEART SOUNDS: S1 normal heart sound present and S2 normal heart sound present PERIPHERAL PULSES: Peripheral pulses 2+ throughout GI: COMMON NORMALS: Normal to inspection, nondistended, normoactive bowel sounds present, Soft to palpation, non-tender, No hepatosplenomegaly present and no masses AUSCULTATION: Yes normoactive bowel sounds PALPATION: Yes Soft to palpation and Yes No hepatosplenomegaly present RECTAL EXAM: Yes deferred Extremity: COMMON NORMALS: no clubbing, cyanosis or edema and no pedal edema Neuro: COMMON NORMALS: patient oriented x3 Data : 01/15/21 04:01 01/15/21 04:01 Micro: Microbiology 01/15/21 09:10 C.difficile Toxin B Gene (PCR) - Final Stool - Stool Aspirate 01/13/21 11:35 Urine Culture - Final Urine,Clean Catch Pseudomonas aeruginosa 01/13/21 11:05 Blood Culture - Preliminary Blood NEGATIVE TO DATE 01/13/21 11:00 Blood Culture - Preliminary Blood NEGATIVE TO DATE A&P Assessment and plan (1) Weakness: Severe weakness is likely multifactorial. Could be secondary to UTI, concomitant renal failure, alcohol intake and hyponatremia. Hydration Close monitoring of sodium Physical therapy evaluation. Status: Acute (2) Fall: Mechanical fall, no significant injuries. Did not have syncopal episode. Status: Acute (3) Acute kidney injury: Acute on chronic kidney insufficiency. Hydration, close follow-up of creatinine Place Vasquez as patient has history of urethral stricture for which he self catheterizes once per day at minimum but has been failing to do so as of late. Hold KAREN inhibitor at this time Status: Acute (4) Rhabdomyolysis: Has responded well to I.V Hydration.CK has appropriately trended down. Continue Ns@50cc/hr. Status: Acute (5) Atrial fibrillation: Metoprolol . T 100 mg BID full dose anticoagulation,has been avoided as he is at risk for recurrent fall due to his h/o alcohol use. TSH: 0.35 Echocardiogram: 01/13: Normal left ventricular size and systolic function with no diagnostic regional wall motion abnormalities. Left ventricular ejection fraction is estimated at 65 %. Normal diastolic function. Normal pulmonary artery pressure. Mild aortic valve regurgitation. Patient agree to follow Cardiology as outpatient. Status: Acute (6) Hyponatremia: Resolved Monitor BMP Status: Acute (7) UTI (urinary tract infection): Associated with leukocytosis Urine culture: Pseudomonas : Sensitive to Levofloxacin: Blood culture:NTD Initially on Rocephin IV every 24 hours, switched to levofloxacin renal dosing on 01/15. Status: Acute (8) Elevated troponin: Likely Type II M.I in the setting of VANNA ON CKD as well as rhabdo Continue Aspirin 81 mg po Daily Low dose Statin once rhabdo is resolved Betablocker Status: Acute (9) Alcoholism: Thiamine, folate. Monitor for withdrawal. Status: Acute (10) Diarrhea: Stool C.Diff:Is Negative Follow Stool: Follow stool enteric bacterial panel, stool lactoferrin, stool parasitic panel. Status: Acute Additional A&P Information Elevated T.Bili:Has Resolved, AST is improving:Likely cause is rhabdomyolysis. Full code Heparin for DVT prophylaxis Attestations Medical Necessity Statement*: Patient needs to be in hospital for management of generalized weakness, diarrhea, VANNA, UTI , need for IV hydration. 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
[2021-01-15] MEDS: calcium carbonate 500 mg Chew Tablet 1000 MG PO (15:25)
[2021-01-15] MEDS: aspirin 81 mg EC Tablet PO (17:46)
[2021-01-16] VITALS: BP 110/68; PULSE 90; RESP 20; TEMP 36.8; O2SAT 98
[2021-01-16] MEDS: heparin 5,000 unit/mL INJ 1 mL 5000 UNIT SUBCUT (02:39)
[2021-01-16 04:53] LABS: Basophils % 0.2 %; Eosinophils % 0.2 %; Hematocrit 34.4 % (42.0-52.0); Lymphocytes # 0.4 10^3/uL (0.8-4.8); Lymphocytes % 3.4 %; Mean Corpuscular Hemoglobin 30.9 pg (28.0-34.0); Mean Corpuscular Volume 96.6 fL (80-94); Monocytes # 0.4 10^3/uL (0.2-0.9); Monocytes % 3.3 %; Neutrophils % 90.7 %; Nucleated Red Blood Cells % 0 %; Platelet Count 306 10^3/cmm (130-400); Red Blood Count 3.56 10^6/uL (4.1-5.3); Red Cell Distribution Width 15.5 % (12.1-15.1); White Blood Count 12.4 10^3/uL (4.0-10.0)
[2021-01-16 05:26] LABS: Alanine Aminotransferase 32 U/L (0-41); Albumin Level 2.5 g/dL (3.5-5.2); Alkaline Phosphatase 113 IU/L (40-130); Anion Gap 13.7 (5-19); Aspartate Amino Transferase 64 U/L (0-40); Blood Urea Nitrogen 39 mg/dL (8-23); Calcium 8.7 mg/dL (8.5-10.5); Carbon Dioxide 20 mmol/L (22-29); Chloride 106 mmol/L (98-107); Creatine Phosphokinase 112 U/L (39-308); Globulin 2.9 g/dL (1.3-4.6); Glucose 115 mg/dL (65-115); Osmolality Calculated 292 mOsm/kg (285-295); Potassium 3.7 mmol/L (3.5-5.1); Sodium 136 mmol/L (136-145); Total Bilirubin 0.4 mg/dL (0.15-1.2); Total Protein 5.4 g/dL (6.6-8.7)
[2021-01-16] MEDS: sodium chloride 0.9% 1,000 ML 50 ML IV (05:51)
[2021-01-16 06:00] VITALS: PULSE 113
[2021-01-16 07:25] VITALS: BP 117/75; PULSE 108; RESP 20; TEMP 36.7; O2SAT 99
[2021-01-16] MEDS: metoprolol tartrate 50 mg Tablet 100 MG PO (08:25)
[2021-01-16] MEDS: thiamine 100 mg Tablet PO (08:25)
[2021-01-16] MEDS: folic acid 1 mg Tablet PO (08:26)
--- NOTE | 2021-01-16 08:46 | PC.SOCIAL ---
IMM Update Pg.2 of IMM updated and reviewed with patient, who verbalized understanding. Copy provided.
[2021-01-16] MEDS: calcium carbonate 500 mg Chew Tablet 1000 MG PO (09:17)
--- NOTE | 2021-01-16 10:52 | PM.DCS ---
Discharge Providers Date of Admission: 01/13/21 12:22 Date of Discharge: January 16, 2021 Attending Provider at Admission: Alex Majano MD Attending Provider at Discharge: Sarbjit Lieberman MD Primary Care Provider: TAMANNA Benitez Diagnoses at Discharge Discharge Diagnosis (1) Weakness: Status: Acute (2) Fall: Status: Acute (3) Acute kidney injury: Status: Acute (4) Rhabdomyolysis: Status: Acute (5) Atrial fibrillation: Status: Acute (6) Hyponatremia: Status: Acute (7) UTI (urinary tract infection): Status: Acute (8) Elevated troponin: Status: Acute (9) Alcoholism: Status: Acute (10) Diarrhea: Status: Acute Reason for Visit Reason for Visit: WEAKNESS/ DIZZINESS/ FALLS Hospital Course Hospital Course Darien Recinos is a 75 year old male who presents to the hospital with complaints of weakness. Patient reports during the night he was so weak that he lowered himself to the floor and stayed in the floor all night. He reports he has been significantly weak for the last week. He has had several episodes of vomiting the last several days. He has felt short of breath 2 or 3 weeks. He denies any fevers. He reports he has some renal insufficiency and difficulty urinating with urethral stricture and is supposed to catheterize himself once daily or more but has not always gotten to this. He denies any true syncope. He denies any chest discomfort, or significant cough. He reports no exposure to Covid. He has had no recent medication changes. He does report he usually drinks a fair amount sometimes up to a pint of whiskey a day but has not been drinking as much lately. Of note he did not take his metoprolol this morning. He reports no past history of atrial fibrillation. Patient went to the hospital for management of weakness, rhabdomyolysis and acute kidney injury. It is believed patient weaknesses combination of hyponatremia, chronic alcohol abuse, VANNA and concomitant UTI. On admission patient was in VANNA most likely from dehydration and rhabdomyolysis. Rhabdomyolysis is most likely secondary to fall and concomitant use of statins. Patient was treated with IV hydration. His rhabdomyolysis resolved and kidney functions also improved with being them back to baseline of 1.6 with a day of discharge. Patient was found to have UTI with urine cultures growing Pseudomonas aeruginosa. His antibiotics were tailored accordingly. He requires levofloxacin for 2 more days to finish a course of antibiotics. During hospitalization patient was found to have soft blood pressures for which his antihypertensives were adjusted. For now he is to continue taking metoprolol 100 twice daily for atrial fibrillation and hold off on taking lisinopril and hydrochlorothiazide as blood pressures remain normal being off the medications. For atrial fibrillation it is decided after talking to the patient do not do anticoagulation given his chronic alcohol abuse and history of falls as it is believed patient is at high risk of hemorrhagic stroke or catastrophic hemorrhage because of a fall while being on anticoagulation then thromboembolic event. On examination patient was found to be in urinary retention. Patient states he does straight catheterization once or twice a day for many years and follows up with Dr. Martinez as an outpatient. Patient went to follow hemoglobin stable condition advised to take levofloxacin for 2 more days and follow-up with his primary care provider within next 1 week to 10 days for repeat BMP and CPK and follow-up with Dr. Galeano in 2 weeks. Patient is to stop taking lisinopril and hydrochlorothiazide for now. He is to hold off on taking statins for 1 more week. He is to maintain his blood pressure diary checking his blood pressure twice a day and follow-up with his primary care provider for further adjustments of antihypertensives. Physical Exam Const: COMMON NORMALS: patient oriented x3 HENMT: COMMON NORMALS: normocephalic and atraumatic HEAD & SCALP: normocephalic and atraumatic Chest: CHEST: Yes Symmetrical chest wall rise Resp: COMMON NORMALS: clear to auscultation bilaterally EFFORT & INSPECTION: Yes symmetric chest movement AUSCULTATION: clear to auscultation bilaterally Cardio: COMMON NORMALS: regular rate, regular rhythm, S1 normal heart sound present, S2 normal heart sound present, No gallops present (Cardio), No murmurs present (Cardio), No rub (Cardio) and Peripheral pulses 2+ throughout RATE: regular rate RHYTHM: regular rhythm HEART SOUNDS: S1 normal heart sound present and S2 normal heart sound present PERIPHERAL PULSES: Peripheral pulses 2+ throughout GI: COMMON NORMALS: Normal to inspection, nondistended, normoactive bowel sounds present, Soft to palpation, non-tender, No hepatosplenomegaly present and no masses AUSCULTATION: Yes normoactive bowel sounds PALPATION: Yes Soft to palpation and Yes No hepatosplenomegaly present RECTAL EXAM: Yes deferred Extremity: COMMON NORMALS: no clubbing, cyanosis or edema and no pedal edema Neuro: COMMON NORMALS: patient oriented x3 Discharge Data Data Completed and Pending: Completed Studies During Hospitalization Category Date Time Status CT head wo con* [id number] Stat Cat Scan 01/13/21 12:02 Completed XR chest 1V byron ble [id number] Stat Exams 01/13/21 10:37 Completed CV echo complete* [id number] Routine Ultrasound 01/13/21 13:30 Completed Pending at discharge Category Date Time Status Blood Culture Sta t Lab 01/13/21 11:00 Results Complete Blood Co unt w/Auto AM LABS Lab 01/17/21 04:00 Ordered Comprehensive Met abolic Panel AM LA BS Lab 01/17/21 04:00 Ordered Creatine Phosphok inase AM LABS Lab 01/17/21 04:00 Ordered Enteric Bacterial Panel by PCR Rout ine Lab 01/15/21 16:30 Received Enteric Parasite Panel by PCR Routi ne Lab 01/15/21 16:30 Received Lactoferrin Routi ne Lab 01/15/21 16:30 Received Urine Culture Rou shaila Lab 01/15/21 10:06 Received Labs from last 24 hours 01/16/21 01/16/21 04:40 04:40 WBC 12.4 H RBC 3.56 L Hgb 11.0 L Hct 34.4 L MCV 96.6 H MCH 30.9 MCHC 32.0 RDW 15.5 H Plt Count 306 MPV 10.0 Neut % (Auto) 90.7 Lymph % (Auto) 3.4 Stokes % (Auto) 3.3 Eos % (Auto) 0.2 Baso % (Auto) 0.2 Neut # (Auto) 11.30 H Lymph # (Auto) 0.4 L Stokes # (Auto) 0.4 Eos # (Auto) 0.0 Baso # (Auto) 0.0 Nucleated RBC % (a uto) 0 Nucleated RBCs # 0.0 Sodium 136 Potassium 3.7 Chloride 106 Carbon Dioxide 20 L Anion Gap 13.7 BUN 39 H Creatinine 1.6 H GFR Calculation Not Reportable Glucose 115 Calculated Osmolal ity 292 Calcium 8.7 Total Bilirubin 0.4 AST 64 H ALT 32 Alkaline Phosphata se 113 Creatine Kinase 112 Total Protein 5.4 L Albumin 2.5 L Globulin 2.9 Addt'l Data from Hospital Stay: Laboratory Results WBC 12.4 10^3/uL (4.0 -10.0) H 01/16/21 04:40 RBC 3.56 10^6/uL (4.1 -5.3) L 01/16/21 04:40 Hgb 11.0 g/dL (11.7-1 6.6) L 01/16/21 04:40 Hct 34.4 % (42.0-52.0 ) L 01/16/21 04:40 MCV 96.6 fL (80-94) H 01/16/21 04:40 MCH 30.9 pg (28.0-34. 0) 01/16/21 04:40 MCHC 32.0 g/dL (30.0-3 6.0) 01/16/21 04:40 RDW 15.5 % (12.1-15.1 ) H 01/16/21 04:40 Plt Count 306 10^3/cmm (130 -400) 01/16/21 04:40 MPV 10.0 fL (7.4-10.4 ) 01/16/21 04:40 Neut % (Auto) 90.7 % 01/16/21 04:40 Lymph % (Auto) 3.4 % 01/16/21 04:40 Stokes % (Auto) 3.3 % 01/16/21 04:40 Eos % (Auto) 0.2 % 01/16/21 04:40 Baso % (Auto) 0.2 % 01/16/21 04:40 Neut # (Auto) 11.30 10^3/uL (1. 8-7.7) H 01/16/21 04:40 Lymph # (Auto) 0.4 10^3/uL (0.8- 4.8) L 01/16/21 04:40 Stokes # (Auto) 0.4 10^3/uL (0.2- 0.9) 01/16/21 04:40 Eos # (Auto) 0.0 10^3/uL (0.0- 0.8) 01/16/21 04:40 Baso # (Auto) 0.0 10^3/uL (0.0- 0.1) 01/16/21 04:40 Nucleated RBC % (a uto) 0 % 01/16/21 04:40 Nucleated RBCs # 0.0 /100WBC 01/16/21 04:40 Sodium 136 mmol/L (136-1 45) 01/16/21 04:40 Potassium 3.7 mmol/L (3.5-5 .1) 01/16/21 04:40 Chloride 106 mmol/L (98-10 7) 01/16/21 04:40 Carbon Dioxide 20 mmol/L (22-29) L 01/16/21 04:40 Anion Gap 13.7 (5-19) 01/16/21 04:40 BUN 39 mg/dL (8-23) H 01/16/21 04:40 Creatinine 1.6 mg/dL (0.7-1. 2) H 01/16/21 04:40 GFR Calculation Not Reportable 01/16/21 04:40 Glucose 115 mg/dL (65-115 ) 01/16/21 04:40 Calculated Osmolal ity 292 mOsm/kg (285- 295) 01/16/21 04:40 Calcium 8.7 mg/dL (8.5-10 .5) 01/16/21 04:40 Magnesium 1.9 mg/dL (1.7-2. 3) 01/15/21 04:01 Total Bilirubin 0.4 mg/dL (0.15-1 .2) 01/16/21 04:40 AST 64 U/L (0-40) H 01/16/21 04:40 ALT 32 U/L (0-41) 01/16/21 04:40 Alkaline Phosphata se 113 IU/L (40-130) 01/16/21 04:40 Creatine Kinase 112 U/L (39-308) 01/16/21 04:40 Troponin T Baselin e 137 ng/L (0-15) H* 01/13/21 10:45 Troponin T 120 Min [place] 126.4 ng/L (0-15) H 01/13/21 11:05 Delta Troponin T -10.6 ABS# (0-10) L 01/13/21 11:05 Troponin T Hi Sens 6Hr 112.5 ng/L (0-15) H 01/13/21 16:21 Troponin T Hi Sens 6Hr Delta -24.5 ng/L (0-12) L 01/13/21 16:21 Total Protein 5.4 g/dL (6.6-8.7 ) L 01/16/21 04:40 Albumin 2.5 g/dL (3.5-5.2 ) L 01/16/21 04:40 Globulin 2.9 g/dL (1.3-4.6 ) 01/16/21 04:40 TSH 0.35 uIU/mL (0.27 -4.20) 01/13/21 10:45 Urine Color Yellow (Yellow) 01/13/21 11:35 Urine Appearance Clear (CLEAR) 01/13/21 11:35 Urine pH 5 (5-7) 01/13/21 11:35 Ur Specific Gravit y 1.010 (1.005-1.0 30) 01/13/21 11:35 Urine Protein 1+ (Negative) H 01/13/21 11:35 Urine Glucose (UA) Norm (Normal) 01/13/21 11:35 Urine Ketones Negative (Negati ve) 01/13/21 11:35 Urine Blood 3+ (Negative) H 01/13/21 11:35 Urine Nitrate Negative (Negati ve) 01/13/21 11:35 Urine Bilirubin 1+ (Negative) H 01/13/21 11:35 Urine Urobilinogen 1 mg/dL (Negative ) H 01/13/21 11:35 Ur Leukocyte Caroline ase 2+ (Negative) H 01/13/21 11:35 Urine RBC 5-10 /hpf (0-2) H 01/13/21 11:35 Urine WBC 10-15 /hpf (0-5) H 01/13/21 11:35 Ur Squamous Epith Cells 0-4 /hpf (0-5) H 01/13/21 11:35 Amorphous Sediment Not Reportable 01/13/21 11:35 Urine Bacteria 2+ /hpf (NONE) H 01/13/21 11:35 Impressions Chest X-Ray 01/13/21 10:37 Impression: Atherosclerosis Head CT 01/13/21 12:02 IMPRESSION: 1. No acute intracranial hemorrhage or edema. 2. Mild atrophy and chronic ischemic disease. Vitals: Last Vital Signs Temp 98.0 F 01/16/21 07:25 Pulse 108 H 01/16/21 07:25 Resp 20 H 01/16/21 07:25 BP 117/75 01/16/21 07:25 Pulse Ox 99 01/16/21 07:25 Discharge Plan Discharge Patient Disposition: Home Health Service Condition: Stable Prescriptions: New tamsulosin 0.4 mg Capsule 0.4 mg PO DAILY Qty: 30 RF: 0 levofloxacin 500 mg Tablet 500 mg PO 1800 Qty: 2 RF: 0 Vitamin B-1 (mononitrate) 100 mg Tablet 100 mg PO DAILY Qty: 30 RF: 0 Continued metoprolol tartrate 100 mg tablet 100 mg PO BID Qty: 60 RF: 5 aspirin [Adult Low Dose Aspirin] 81 mg tablet,delayed release (DR/EC) 81 mg PO QPM RF: 0 Eckley 5-325 mg Tablet 1 tab PO Q4H PRN (Reason: Pain) RF: 0 Tylenol Extra Strength 500 mg Tablet 1,000 mg PO PRN RF: 0 Benadryl 25 mg Capsule 50 mg PO PRN RF: 0 Held atorvastatin [Lipitor] 20 mg tablet 20 mg PO DAILY Qty: 30 RF: 5 Hold Instructions: Resume on 01/23/21. Discontinued lisinopril 20 mg tablet 20 mg PO BID Qty: 60 RF: 5 hydrochlorothiazide 12.5 mg tablet 12.5 mg PO QAM Qty: 30 RF: 5 Discharge Orders: Discharge Order (Routine); Ordered 01/16/21 Ordered By: Sarbjit Lieberman Referrals: [facility] ([facility]) [Outside] Aayush Martinez MD [Physician] - 2 weeks (Chronic urinary retention requiring straight catheterization.) Jenelle Goldman FNP [Primary Care Provider] - 7-10 days (Repeat BMP and CPK. Reviewing blood pressure diary for further adjustment of antihypertensives.) Discharge Diet: Cardiac Discharge Activity: Resume usual activity Patient Instructions: Opioid Safety Activity Restrictions/Additional Instructions: Please follow-up with your primary care provider within next 1 week for repeat BMP. Please hold off on taking atorvastatin for next 1 week. For now do not take hydrochlorothiazide and lisinopril. Please check blood pressures every day twice a day and maintain a blood pressure diary to follow-up with a primary care provider for further adjustment of antihypertensives. You will be on levofloxacin which is the antibiotics for 2 more days for UTI. Please follow-up with Dr. Martinez within next 2 weeks for urinary retention. Till that time continue use doing straight catheterization which you have been doing for a long time. Please try to abstain from alcohol use as discussed in detail. Discharge Attestations Time Spent in Discharge Care*: greater than 30 min Specific Discharge Activities: educating patient, discussing with pcp/other providers, discussing with manager case/social workers/dc planners, documenting/other paperwork and evaluating patient/reviewing data Status at Discharge: Cognitive status at discharge: cognitively intact, Behavioral status at discharge: cooperative, Functional status at discharge: uses cane/walker Overall status at discharge: patient is back to baseline Quality Metrics Clinical Quality Measures During this hospital stay, did patient experience: None Coding Level of Care Code Acute [facility] DC note Diagnoses Weakness R53.1 Fall W19.XXXA Acute kidney injury N17.9 Rhabdomyolysis M62.82 Atrial fibrillation I48.91 Hyponatremia E87.1 UTI (urinary tract infection) N39.0 Elevated troponin R77.8 Alcoholism F10.20 Diarrhea R19.7
--- NOTE | 2021-01-16 11:08 | CT_ITS ---
WS: [id number] CT ABDOMEN PELVIS TECHNIQUE: Noncontrast CT of the abdomen and pelvis with coronal and sagittal reformatted images. CLINICAL INFORMATION: urinary retension, hydronephrosis, prostate enlargement COMPARISON: CT 2008 DLP: 1903.[address] scans at [facility] use at least one of these dose optimization techniques: automat ed exposure control; mA and/or kV adjustment per patient size (includes targeted exams where dose is matched to clinical indication); or iterative reconstruction. FINDINGS: Chronic appearing hydronephrosis right kidney with renal cortical thinning. This is progressed since 2007 with mild associated perinephric stranding. No obstructing renal or ureteral calculi. Right uret er appears decompressed. No hydronephrosis in the left kidney. Left renal cyst measuring 2.1 cm. Tiny right adrenal nodule likely adenoma unchanged since 2007. Normal left adrenal gland. Small esophagea l hiatal hernia. Noncontrast liver is normal. Gallbladder is contracted. Noncontrast spleen is normal. Tiny right pleu ral effusion with slight bibasilar atelectasis. Noncontrast pancreas is normal. Normal caliber abdomi nal aorta. Aortic calcification. Fatty atrophy of the pancreas. Tiny fat-containing umbilical hernia. Normal sigmoid colon. No evidence of high-grade small or large bowel obstruction. Mild diffuse bladde r wall thickening worse involving the dorsal bladder. Prior prostatectomy. CT/CT abdomen pelvis wo con [id number] IMPRESSION: 1. Advanced right hydronephrosis with renal cortical thinning. This is progres sed since 2007. Right ureter is decompressed. Consider right UPJ obstruction. T his can be further evaluated with triphasic contrast enhanced CT urogram if steve al function allows. 2. Left renal cyst measuring 2.1 cm. No hydronephrosis in the left kidney. 3. Mild diffuse bladder wall thickening worse involving the dorsal bladder. In terval prostatectomy. 4. Tiny bilateral pleural effusions. 5. Normal caliber abdominal aorta.
[2021-01-16 11:09] VITALS: BP 115/71; PULSE 93; RESP 22; TEMP 36.6; O2SAT 99
[2021-01-16 13:05] VITALS: O2SAT 97; O2SAT 98
--- NOTE | 2021-01-16 15:28 | PC.NURSE ---
Patient given discharge instructions and displayed understanding of instructions. IV taken out, with catheter intact. Patient brought out to ER entrance via wheelchair.
--- NOTE | 2021-01-16 17:47 | PC.RESP ---
SMOKING CESSATION INFORMATION SENT TO PATIENT.
== END 2021-01-16 15:30 | disposition home health service (06) | DRG 683 ==
LOC: ER 11:22 → CSU 12:46
PROVIDERS: Internal Medicine; Admitting Provider Internal Medicine; Emergency Provider Family Medicine; PCP Nurse Practitioner Family; Visit Provider Student in an Organized Health Care Education/Training Program
DX: N17.9 Acute kidney failure, unspecified (principal); M62.82 Rhabdomyolysis; E87.1 Hypo-osmolality and hyponatremia; N39.0 Urinary tract infection, site not specified; E86.0 Dehydration; B96.5 Pseudomonas (aeruginosa) (mallei) (pseudomallei) as the cause of diseases classified elsewhere; N18.30 Chronic kidney disease, stage 3 unspecified; R33.8 Other retention of urine; I48.91 Unspecified atrial fibrillation; I12.9 Hypertensive chronic kidney disease with stage 1 through stage 4 chronic kidney disease, or unspecified chronic kidney disease; R19.7 Diarrhea, unspecified; M17.0 Bilateral primary osteoarthritis of knee; E78.2 Mixed hyperlipidemia; N35.012 Post-traumatic membranous urethral stricture; R77.8 Other specified abnormalities of plasma proteins; F10.20 Alcohol dependence, uncomplicated; F17.220 Nicotine dependence, chewing tobacco, uncomplicated; L40.9 Psoriasis, unspecified; R73.9 Hyperglycemia, unspecified; Z91.81 History of falling; Z85.46 Personal history of malignant neoplasm of prostate; Z92.3 Personal history of irradiation; Z79.82 Long term (current) use of aspirin
CPT/HCPCS: 36415; 51798; 70450; 71045; 74176; 80053; 81001; 82550; 83630; 83735; 84443; 84484; 85025; 87040; 87077; 87086; 87186; 87493; 87506; 93005; 93306; 94760; 96365; 96372; 96375; 97110; 97116; 97161; 99285; J0696; J1644; J1956; J3411; J7030

== ENCOUNTER → 2021-01-24 15:32 | Outpatient (BNVA) | payer MEDICARE, OTHER, SELFPAY | PROVIDERS: PCP Nurse Practitioner Family; Visit Provider Nurse Practitioner Family | DX: R60.0 Localized edema (principal); R73.9 Hyperglycemia, unspecified; I10 Essential (primary) hypertension; I48.91 Unspecified atrial fibrillation; E55.9 Vitamin D deficiency, unspecified | CPT/HCPCS: 80053; 80061; 82306; 82550; 83036; 83880; 85025 ==

== ENCOUNTER → 2021-02-07 10:07 | Outpatient (BNVA) | payer MEDICARE, OTHER, SELFPAY | PROVIDERS: PCP Nurse Practitioner Family; Visit Provider Nurse Practitioner Family | DX: I10 Essential (primary) hypertension (principal); E78.2 Mixed hyperlipidemia; R60.0 Localized edema | CPT/HCPCS: 80053; 83880; 85025 ==

== ENCOUNTER → 2021-02-14 10:15 | Outpatient (BNVA) | payer MEDICARE, OTHER, SELFPAY | PROVIDERS: PCP Nurse Practitioner Family; Visit Provider Urology | DX: N39.0 Urinary tract infection, site not specified (principal); R33.9 Retention of urine, unspecified; N35.919 Unspecified urethral stricture, male, unspecified site; C61 Malignant neoplasm of prostate; A41.9 Sepsis, unspecified organism | CPT/HCPCS: 81003 ==

== ENCOUNTER → 2021-05-08 09:00 | Outpatient (BNVA) | payer MEDICARE, OTHER, SELFPAY | PROVIDERS: PCP Nurse Practitioner Family; Visit Provider Nurse Practitioner Family | DX: I48.91 Unspecified atrial fibrillation (principal); E55.9 Vitamin D deficiency, unspecified; E78.2 Mixed hyperlipidemia; I10 Essential (primary) hypertension; R73.9 Hyperglycemia, unspecified | CPT/HCPCS: 80053; 80061; 82306; 83036; 84443; 85025 ==

== ENCOUNTER → 2021-08-11 10:48 | Outpatient (BNVA) | payer MEDICARE, OTHER, SELFPAY | PROVIDERS: PCP Nurse Practitioner Family; Visit Provider Nurse Practitioner Family | DX: I10 Essential (primary) hypertension (principal); E78.2 Mixed hyperlipidemia; R73.9 Hyperglycemia, unspecified; E55.9 Vitamin D deficiency, unspecified; I48.91 Unspecified atrial fibrillation | CPT/HCPCS: 80053; 80061; 82306; 83036; 85025 ==

== ENCOUNTER → 2021-10-20 09:59 | Outpatient (BNVA) | payer MEDICARE, OTHER, SELFPAY | PROVIDERS: PCP Nurse Practitioner Family; Visit Provider Internal Medicine Cardiovascular Disease | DX: R33.9 Retention of urine, unspecified (principal); I10 Essential (primary) hypertension; I48.91 Unspecified atrial fibrillation; E78.2 Mixed hyperlipidemia | CPT/HCPCS: 99214 ==

== ENCOUNTER → 2021-11-10 11:35 | Outpatient (BNVA) | payer MEDICARE, OTHER, SELFPAY | PROVIDERS: PCP Nurse Practitioner Family; Visit Provider Nurse Practitioner Family | DX: I48.91 Unspecified atrial fibrillation (principal); I10 Essential (primary) hypertension; E55.9 Vitamin D deficiency, unspecified; R73.9 Hyperglycemia, unspecified; N64.4 Mastodynia; E78.2 Mixed hyperlipidemia; N39.0 Urinary tract infection, site not specified | CPT/HCPCS: 80053; 80061; 81003; 82306; 83036; 83735; 84146; 84403; 84443; 85025 ==

== ENCOUNTER → 2021-11-24 08:56 | Outpatient (BNVA) | payer MEDICARE, OTHER, SELFPAY | PROVIDERS: PCP Nurse Practitioner Family; Visit Provider Nurse Practitioner Family | DX: R79.89 Other specified abnormal findings of blood chemistry (principal); N64.4 Mastodynia | CPT/HCPCS: 84403 ==

== ENCOUNTER 2021-11-29 08:37 | Outpatient (CLI) | payer MEDICARE, OTHER, SELFPAY ==
--- NOTE | 2021-11-29 09:30 | US_ITS ---
WS: [id number] ULTRASOUND RIGHT BREAST HISTORY: N64.4 - Mastodynia COMPARISON: None available. TECHNIQUE: 2-D and Doppler. Ultrasound is directed to the area of pain which is directly behind the nipple. There is a hypoechoic mass with intra-articular extension but no increased vascularity. This has a typical appearance for gynecomastia. Clinically gynecomastia measures 2.0 x 1.1 x 2.2 cm. US/US breast RT complete [id number] IMPRESSION: BI-RADS: 2-Benign FOLLOW-UP: See Report Area of pain posterior to the RIGHT nipple corresponds to an area of gynecomast ia.
== END 2021-11-29 08:38 | disposition home or self-care (01) ==
LOC: RAD 08:40
PROVIDERS: PCP Nurse Practitioner Family; Visit Provider Nurse Practitioner Family
DX: N64.4 Mastodynia (principal)
CPT/HCPCS: 76641

== ENCOUNTER → 2022-01-10 12:31 | Outpatient (BNVA) | payer MEDICARE, OTHER, SELFPAY | PROVIDERS: PCP Nurse Practitioner Family; Visit Provider Nurse Practitioner Family | DX: N35.919 Unspecified urethral stricture, male, unspecified site (principal); N64.4 Mastodynia | CPT/HCPCS: 51741; 51798; 81003; 99213 ==

== ENCOUNTER 2022-02-14 08:50 | Outpatient (CLI) | payer MEDICARE, OTHER, SELFPAY ==
--- NOTE | 2022-02-14 09:05 | MM_ITS ---
WS: [id number] DIAGNOSTIC BILATERAL DIGITAL BREAST TOMOSYNTHESIS MAMMOGRAPHY WITH CAD RIGHT breast ultrasound, limited. HISTORY: BREAST ENLARGEMENT, BREAST PAIN IN MALE COMPARISON: Prior breast ultrasound 11/29/2021 TECHNIQUE: Bilateral craniocaudad, mediolateral oblique, and mediolateral views are submitted with to mosjewels and HATTIE. Computer aided detection utilized. Breast composition: There are scattered areas of fibroglandular density. Flamelike area of increased density which is asymmetric, posterior to the RIGHT nipple measures 2.7 x 4.3 cm. Most consistent wit h advanced gynecomastia. Similar findings are noted posterior to the LEFT nipple but to a much lesser extent. No nipple retraction. This area will be further evaluated by ultrasound. RIGHT breast ultrasound, limited. Again noted is a very hypoechoic area with dendritic-like extensions posterior to the RIGHT nipple me asuring 2.5 x 1.0 x 2.7 cm. There is very minimal peripheral increased vascularity. This is similar t o the prior study of 11/29/2021. MM/[place] [id number] IMPRESSION: BI-RADS: 2-Benign FOLLOW UP: See Report RIGHT breast palpable area is most consistent with an area of gynecomastia as s een on 11/29/2021. If this is not concordant with clinical examination biopsy c an be obtained.
--- NOTE | 2022-02-14 10:21 | US_ITS ---
WS: [id number] DIAGNOSTIC BILATERAL DIGITAL BREAST TOMOSYNTHESIS MAMMOGRAPHY WITH CAD RIGHT breast ultrasound, limited. HISTORY: BREAST ENLARGEMENT, BREAST PAIN IN MALE COMPARISON: Prior breast ultrasound 11/29/2021 TECHNIQUE: Bilateral craniocaudad, mediolateral oblique, and mediolateral views are submitted with to mosjewels and HATTIE. Computer aided detection utilized. Breast composition: There are scattered areas of fibroglandular density. Flamelike area of increased density which is asymmetric, posterior to the RIGHT nipple measures 2.7 x 4.3 cm. Most consistent wit h advanced gynecomastia. Similar findings are noted posterior to the LEFT nipple but to a much lesser extent. No nipple retraction. This area will be further evaluated by ultrasound. RIGHT breast ultrasound, limited. Again noted is a very hypoechoic area with dendritic-like extensions posterior to the RIGHT nipple me asuring 2.5 x 1.0 x 2.7 cm. There is very minimal peripheral increased vascularity. This is similar t o the prior study of 11/29/2021. US/US breast RT limited* [id number] IMPRESSION: BI-RADS: 2-Benign FOLLOW UP: See Report RIGHT breast palpable area is most consistent with an area of gynecomastia as s een on 11/29/2021. If this is not concordant with clinical examination biopsy c an be obtained.
== END 2022-02-14 08:51 | disposition home or self-care (01) ==
PROVIDERS: PCP Nurse Practitioner Family; Visit Provider Nurse Practitioner Family
DX: N64.4 Mastodynia (principal)
CPT/HCPCS: 76642; 77062

== ENCOUNTER → 2022-05-08 10:43 | Outpatient (BNVA) | payer MEDICARE, OTHER, SELFPAY | PROVIDERS: PCP Nurse Practitioner Family; Visit Provider Nurse Practitioner Family | DX: I48.91 Unspecified atrial fibrillation (principal); I10 Essential (primary) hypertension; E55.9 Vitamin D deficiency, unspecified; R73.9 Hyperglycemia, unspecified; N64.4 Mastodynia; N39.0 Urinary tract infection, site not specified; Z23 Encounter for immunization; R60.0 Localized edema; E78.2 Mixed hyperlipidemia | CPT/HCPCS: 80053; 80061; 82306; 83036; 84443; 85025 ==

== ENCOUNTER → 2022-05-17 13:17 | Outpatient (BNVA) | payer MEDICARE, OTHER, SELFPAY | PROVIDERS: PCP Nurse Practitioner Family; Visit Provider Urology | DX: N39.0 Urinary tract infection, site not specified (principal); N35.919 Unspecified urethral stricture, male, unspecified site; A41.9 Sepsis, unspecified organism | CPT/HCPCS: 52281; 81003; 99213 ==

== ENCOUNTER → 2022-05-24 12:13 | Outpatient (BNVA) | payer MEDICARE, OTHER, SELFPAY | PROVIDERS: PCP Nurse Practitioner Family; Visit Provider Urology | DX: N35.919 Unspecified urethral stricture, male, unspecified site (principal); R97.20 Elevated prostate specific antigen [PSA]; C61 Malignant neoplasm of prostate | CPT/HCPCS: 51702; 99213 ==

== ENCOUNTER → 2022-08-16 09:50 | Outpatient (BNVA) | payer MEDICARE, OTHER, SELFPAY | PROVIDERS: PCP Nurse Practitioner Family; Visit Provider Urology | DX: R97.20 Elevated prostate specific antigen [PSA] (principal); C61 Malignant neoplasm of prostate | CPT/HCPCS: 84153 ==

== ENCOUNTER → 2022-08-23 12:48 | Outpatient (BNVA) | payer MEDICARE, OTHER, SELFPAY | PROVIDERS: PCP Nurse Practitioner Family; Visit Provider Urology | DX: N35.919 Unspecified urethral stricture, male, unspecified site (principal); C61 Malignant neoplasm of prostate | CPT/HCPCS: 81003; 99213 ==

== ENCOUNTER → 2022-09-05 10:40 | Outpatient (BNVA) | payer MEDICARE, OTHER, SELFPAY | PROVIDERS: PCP Nurse Practitioner Family; Visit Provider Internal Medicine Cardiovascular Disease | DX: I48.91 Unspecified atrial fibrillation (principal); Z79.01 Long term (current) use of anticoagulants; E78.2 Mixed hyperlipidemia; Z87.891 Personal history of nicotine dependence; K21.9 Gastro-esophageal reflux disease without esophagitis; I12.9 Hypertensive chronic kidney disease with stage 1 through stage 4 chronic kidney disease, or unspecified chronic kidney disease; N18.30 Chronic kidney disease, stage 3 unspecified | CPT/HCPCS: 99214; Q3014 ==

== ENCOUNTER 2022-09-09 10:00 | Emergency (ER) | payer MEDICARE, OTHER, SELFPAY ==
--- NOTE | 2022-09-09 10:01 | XRR_ITS ---
PROCEDURE INFORMATION: Exam: XR Left Ankle Exam date and time: 09/09/2022 10:49 AM Age: 77 years old Clinical indication: Injury or trauma; Fall; Blunt trauma; Ankle; Left; Additional info: Fall, pain TECHNIQUE: Imaging protocol: Radiologic exam of the Left ankle. Views: 3 or more views. COMPARISON: No relevant prior studies available. FINDINGS: Bones/joints: Fracture of the medial malleolus. Oblique fracture of the distal fibula/lateral malleolus with extension to the tibiofibular syndesmosis and superior margin of the ankle mortise. The ankle mortise maintains normal alignment. Soft tissues: Soft tissue swelling surrounding the ankle. XR/XR ankle LT min 3V* [id number] IMPRESSION: Medial and lateral malleolar fractures.
[2022-09-09 10:05] VITALS: BP 121/72; PULSE 85; RESP 16; TEMP 36.9; O2SAT 97; BMI 29.9
--- NOTE | 2022-09-09 10:11 | XRR_ITS ---
PROCEDURE INFORMATION: Exam: XR Left Knee Exam date and time: 09/09/2022 10:49 AM Age: 77 years old Clinical indication: Injury or trauma; Fall; Blunt trauma; Knee; Left; Additional info: L knee pain TECHNIQUE: Imaging protocol: Radiologic exam of the Left knee. Views: 3 views. COMPARISON: No relevant prior studies available. FINDINGS: Bones/joints: The medial joint space is narrowed. The lateral joint space is narrowed with osteophyte formation. No fracture identified. Chronic appearing irregularity along the medial tibial plateau may be related to old injury. Soft tissues: No knee joint effusion is present. XR/XR knee LT 3V* [id number] IMPRESSION: No evidence of acute fracture or dislocation. Osteoarthritic changes noted.
--- NOTE | 2022-09-09 10:58 | ED_ITS ---
Documented by User: Margot Galeano PA-C 09/09/22 11:30 HPI - Extremity Problem General: Chief complaint: Extremity Injury, Lower Stated complaint: fall, left ankle injury Time Seen by Provider: 09/09/22 10:11 Source: patient Mode of arrival: wheelchair Limitations: no limitations History of Present Illness: 77-year-old male presents to the ER today for left knee and ankle pain that began yesterday after he fell on the ice. Patient reports he just slipped and ended up in a big pile on the ice. He denies hitting his head or losing consciousness. Patient reports since then he has had continued knee and ankle pain. He reports the ankle is bothering him so much he can hardly walk on it. He reports weightbearing is severely painful. He did take a Vicodin that he had at home from a prior biopsy surgery. Patient reports that took the edge off but he is still having significant pain. He reports he has an old tibial plateau fracture of the left knee from many years ago. He reports he does have pain in the left knee but the ankle is much worse. Review of Systems General: Reports: 10 or more systems reviewed and unremarkable except in HPI and below PFSH ED PFSH: Medical History Acute kidney injury Alcoholism Atrial fibrillation Bilateral primary osteoarthritis of knee CA of prostate diagnosed August 2007 History of radiotherapy Chronic kidney disease, stage 3 (moderate) Essential (primary) hypertension GERD (gastroesophageal reflux disease) History of skin cancer Hyperglycemia Incomplete bladder emptying Mixed hyperlipidemia Post-traumatic membranous urethral stricture Psoriasis Rhabdomyolysis Vitamin D deficiency Surgical History History of prostate biopsy Hx of vasectomy Family History Father , age 80 CAD (coronary artery disease) Hx of CABG Mother , age 71 CAD (coronary artery disease) CHF (congestive heart failure) Diabetes Denies family history of Stroke Social History Smoking and tobacco status: former smoker (quit 12 years ago) Second hand smoke exposure: No Alcohol intake: former Year of sobriety/quit date alcohol: > 1 Caregiver/support person: Yes Lives independently: Yes Household members: none Marital status: service: Yes branch: [email or web address] Current occupational status: retired History of recent travel: No Current gender identity: Male Special anabella needs: No Physical Exam Const: COMMON NORMALS: average body habitus, patient oriented x3, no limitations, healthy appearing, alert and well nourished Resp: COMMON NORMALS: normal respiratory effort EFFORT & INSPECTION: Yes able to speak in complete sentences Cardio: COMMON NORMALS: regular rate, regular rhythm and No murmurs present (Cardio) RATE: regular rate RHYTHM: regular rhythm Extremity: NARRATIVE EXTREMITY EXAM: Patient is noted to have significant swelling in the left ankle with bruising over the medial and lateral malleolus is. Patient has pain with any weightbearing or movement of the left ankle. Patient also has mild swelling in the left knee. No obvious bruising noted there. No skin changes noted. Patient has pain with flexion and extension of the knee. Neuro: COMMON NORMALS: patient oriented x3 SENSORIUM/ORIENTATION: Yes alert Psych: COMMON NORMALS: mental status grossly normal, Normal thought process present and cooperative THOUGHT PROCESS: Normal thought process present Skin: COMMON NORMALS: no rashes or lesions noted and no wounds GENERAL SKIN EXAM: no rashes or lesions noted Course ED course: Patient is noted to have significant swelling and bruising of the left ankle and also pain in the left knee after a fall on ice yesterday. We will get x-rays at this time. Reevaluation(s): Reevaluation #1: I spoke with Dr. Bello regarding patient's tib-fib fracture. He recommends placing patient in a splint and making him nonweightbearing. He recommended ketorolac however patient takes Eliquis daily. We will go ahead and send patient home with hydrocodone. I did discuss with patient that we need to get the swelling down. I stressed rest ice and elevation to minimize swelling. A case management consult was placed for orthopedic consult however I also advised patient to contact the orthopedic clinic first thing in the morning for appointment. Time: 11:10 Vital Signs: Vital signs: Vital Signs Temperature 98.5 F 09/09/22 10:05 Pulse Rate 85 09/09/22 10:05 Respiratory Rate 16 09/09/22 10:05 Blood Pressure 121/72 09/09/22 10:05 Pulse Oximetry 97 09/09/22 10:05 Oxygen Delivery Me thod 09/09/22 10:05 MDM - Extremity (Nontraumatic) Medical Decision Making Knee x-ray indicates arthritis but no acute fractures. Patient is noted to have fractures of the medial and lateral malleolus of the left ankle. These are in good alignment at this time. We will place patient in a splint and on crutches. He prefers to go home and use the crutches. I spoke with Dr. Bello who will see patient in the clinic this week. Dr. Bello would like patient to be on Toradol however patient takes Eliquis. I discussed with patient the importance of ice and elevation to get the swelling down in case they need to do something further with the fracture. We will send patient home with hydrocodone for pain. Patient should follow-up to the ER for any new or worsening symptoms. Patient verbalized understanding and was in agreement with the treatment plan. Lab Data Radiology Impressions Ankle X-Ray 09/09/22 10:01 IMPRESSION: Medial and lateral malleolar fractures. Knee X-Ray 09/09/22 10:11 IMPRESSION: No evidence of acute fracture or dislocation. Osteoarthritic changes noted. Critical Care Time Critical Care Time: Critical Care Time: No Discharge Plan Discharge Patient Disposition: Home Clinical Impression: Acute pain of left knee Closed fracture of left tibia and fibula Qualifiers: Encounter type: initial encounter Qualified Code(s): S82.202A - Unspecified fracture of shaft of left tibia, initial encounter for closed fracture Fall due to ice or snow Qualifiers: Encounter type: initial encounter Qualified Code(s): W00.9XXA - Unspecified fall due to ice and snow, initial encounter Condition: Stable Prescriptions: New hydrocodone-acetaminophen 5-325 mg tablet 1 tab PO Q6H PRN (Reason: pain) Qty: 20 0RF No Action ascorbate calcium (vitamin C) 500 mg tablet 1 g PO DAILY cholecalciferol (vitamin D3) 25 mcg (1,000 unit) capsule 25 mcg PO DAILY Eliquis 5 mg tablet 5 mg PO BID Qty: 60 11RF atorvastatin 20 mg tablet See Rx Instructions .ROUTE .COMPLEX Qty: 30 5RF Hold Instructions: Resume on 01/23/21. Dose Instruction: Take 1 tablet by mouth once daily Rx Instructions: Take 1 tablet by mouth once daily hydrochlorothiazide 12.5 mg tablet See Rx Instructions .ROUTE .COMPLEX Qty: 30 5RF Dose Instruction: TAKE 1 TABLET BY MOUTH ONCE DAILY IN THE MORNING Rx Instructions: TAKE 1 TABLET BY MOUTH ONCE DAILY IN THE MORNING tamsulosin 0.4 mg capsule See Rx Instructions .ROUTE .COMPLEX Qty: 30 5RF Dose Instruction: Take 1 capsule by mouth once daily Rx Instructions: Take 1 capsule by mouth once daily metoprolol tartrate 100 mg tablet 100 mg PO BID Qty: 60 5RF methenamine hippurate 1 gram tablet See Rx Instructions .ROUTE .COMPLEX Qty: 60 6RF Dose Instruction: TAKE 1 TABLET BY MOUTH TWICE DAILY; TAKE 1 GRAM OF VITAMIN C WITH EACH DOSE Rx Instructions: TAKE 1 TABLET BY MOUTH TWICE DAILY; TAKE 1 GRAM OF VITAMIN C WITH EACH DOSE Tylenol Extra Strength 500 mg Tablet 1,000 mg PO PRN Vitamin B-1 (mononitrate) 100 mg Tablet 100 mg PO DAILY Qty: 30 0RF Discharge Orders: Discharge ED (Routine); Ordered 09/09/22 Ordered By: Margot Galeano Referrals: Jenelle Goldman FNP [Primary Care Provider] - Discharge Diet: Usual diet Discharge Activity: Limit activity as instructed and Use walker/crutches as instructed Patient Instructions: Opioid Safety, Pain Management Activity Restrictions/Additional Instructions: Rest, ice, and elevation recommended. Take hydrocodone for pain. Follow-up with Dr. Bello as discussed this week. Return to the ER with new or worsening symptoms. Coding Level of Care Code ED [employer] Operator for Chg Fwd Exam Detailed Documented by User: Marcio Walker DO 09/09/22 11:32 HPI - Extremity Problem General: Chief complaint: Extremity Injury, Lower Stated complaint: fall, left ankle injury Time Seen by Provider: 09/09/22 10:11 PFS ED PFSH: Medical History Acute kidney injury Alcoholism Atrial fibrillation Bilateral primary osteoarthritis of knee CA of prostate diagnosed August 2007 History of radiotherapy Chronic kidney disease, stage 3 (moderate) Essential (primary) hypertension GERD (gastroesophageal reflux disease) History of skin cancer Hyperglycemia Incomplete bladder emptying Mixed hyperlipidemia Post-traumatic membranous urethral stricture Psoriasis Rhabdomyolysis Vitamin D deficiency Surgical History History of prostate biopsy Hx of vasectomy Family History Father , age 80 CAD (coronary artery disease) Hx of CABG Mother , age 71 CAD (coronary artery disease) CHF (congestive heart failure) Diabetes Denies family history of Stroke Social History Smoking and tobacco status: former smoker (quit 12 years ago) Second hand smoke exposure: No Alcohol intake: former Year of sobriety/quit date alcohol: > 1 Caregiver/support person: Yes Lives independently: Yes Household members: none Marital status: service: Yes branch: [email or web address] Current occupational status: retired History of recent travel: No Current gender identity: Male Special anabella needs: No Course Vital Signs: Vital signs: Vital Signs Temperature 98.5 F 09/09/22 10:05 Pulse Rate 85 09/09/22 10:05 Respiratory Rate 16 09/09/22 10:05 Blood Pressure 121/72 09/09/22 10:05 Pulse Oximetry 97 09/09/22 10:05 Oxygen Delivery Me thod 09/09/22 10:05 MDM - Extremity (Nontraumatic) Medical Decision Making Knee x-ray indicates arthritis but no acute fractures. Patient is noted to have fractures of the medial and lateral malleolus of the left ankle. These are in good alignment at this time. We will place patient in a splint and on crutches. He prefers to go home and use the crutches. I spoke with Dr. Bello who will see patient in the clinic this week. Dr. Bello would like patient to be on Toradol however patient takes Eliquis. I discussed with patient the importance of ice and elevation to get the swelling down in case they need to do something further with the fracture. We will send patient home with hydrocodone for pain. Patient should follow-up to the ER for any new or worsening symptoms. Patient verbalized understanding and was in agreement with the treatment plan. Chart reviewed and patient discussed with midlevel. Agree with assessment and plan. Lab Data Radiology Impressions Ankle X-Ray 09/09/22 10:01 IMPRESSION: Medial and lateral malleolar fractures. Knee X-Ray 09/09/22 10:11 IMPRESSION: No evidence of acute fracture or dislocation. Osteoarthritic changes noted. Discharge Plan Discharge Patient Disposition: Home Clinical Impression: Acute pain of left knee Closed fracture of left tibia and fibula Qualifiers: Encounter type: initial encounter Qualified Code(s): S82.202A - Unspecified fracture of shaft of left tibia, initial encounter for closed fracture Fall due to ice or snow Qualifiers: Encounter type: initial encounter Qualified Code(s): W00.9XXA - Unspecified fall due to ice and snow, initial encounter Condition: Stable Prescriptions: New hydrocodone-acetaminophen 5-325 mg tablet 1 tab PO Q6H PRN (Reason: pain) Qty: 20 0RF No Action ascorbate calcium (vitamin C) 500 mg tablet 1 g PO DAILY cholecalciferol (vitamin D3) 25 mcg (1,000 unit) capsule 25 mcg PO DAILY Eliquis 5 mg tablet 5 mg PO BID Qty: 60 11RF atorvastatin 20 mg tablet See Rx Instructions .ROUTE .COMPLEX Qty: 30 5RF Hold Instructions: Resume on 01/23/21. Dose Instruction: Take 1 tablet by mouth once daily Rx Instructions: Take 1 tablet by mouth once daily hydrochlorothiazide 12.5 mg tablet See Rx Instructions .ROUTE .COMPLEX Qty: 30 5RF Dose Instruction: TAKE 1 TABLET BY MOUTH ONCE DAILY IN THE MORNING Rx Instructions: TAKE 1 TABLET BY MOUTH ONCE DAILY IN THE MORNING tamsulosin 0.4 mg capsule See Rx Instructions .ROUTE .COMPLEX Qty: 30 5RF Dose Instruction: Take 1 capsule by mouth once daily Rx Instructions: Take 1 capsule by mouth once daily metoprolol tartrate 100 mg tablet 100 mg PO BID Qty: 60 5RF methenamine hippurate 1 gram tablet See Rx Instructions .ROUTE .COMPLEX Qty: 60 6RF Dose Instruction: TAKE 1 TABLET BY MOUTH TWICE DAILY; TAKE 1 GRAM OF VITAMIN C WITH EACH DOSE Rx Instructions: TAKE 1 TABLET BY MOUTH TWICE DAILY; TAKE 1 GRAM OF VITAMIN C WITH EACH DOSE Tylenol Extra Strength 500 mg Tablet 1,000 mg PO PRN Vitamin B-1 (mononitrate) 100 mg Tablet 100 mg PO DAILY Qty: 30 0RF Discharge Orders: Discharge ED (Routine); Ordered 09/09/22 Ordered By: Margot Galeano Referrals: Jenelle Goldman FNP [Primary Care Provider] - Discharge Diet: Usual diet Discharge Activity: Limit activity as instructed and Use walker/crutches as instructed Patient Instructions: Opioid Safety, Pain Management Activity Restrictions/Additional Instructions: Rest, ice, and elevation recommended. Take hydrocodone for pain. Follow-up with Dr. Bello as discussed this week. Return to the ER with new or worsening symptoms. Coding Level of Care Code ED [employer] Operator for Chg Fwd Exam Detailed
[2022-09-09] MEDS: HYDROcodone-acetaminophen 5-325 mg Tablet 1 TAB PO (11:59)
--- NOTE | 2022-09-10 10:52 | DCPLANNER ---
Addendum entered by Petrona Young 09/14/22 13:20: Patient had a follow up appointment scheduled with Dr. Bello at ortho - patient did attend appointment. Original Note: planning and analysis manager had message to schedule a follow up appointment for patient with ortho. planning and analysis manager sent patients information to the front office staff at ortho. Patients information will be printed and reviewed. Clinic will call patient with appointment information.
== END 2022-09-09 12:26 | disposition home or self-care (01) ==
PROVIDERS: Emergency Provider Physician Assistant; PCP Nurse Practitioner Family
DX: S82.845A Nondisplaced bimalleolar fracture of left lower leg, initial encounter for closed fracture (principal); Z79.01 Long term (current) use of anticoagulants; Z85.46 Personal history of malignant neoplasm of prostate; Z92.3 Personal history of irradiation; I12.9 Hypertensive chronic kidney disease with stage 1 through stage 4 chronic kidney disease, or unspecified chronic kidney disease; N18.30 Chronic kidney disease, stage 3 unspecified; E78.2 Mixed hyperlipidemia; Z87.891 Personal history of nicotine dependence; W00.0XXA Fall on same level due to ice and snow, initial encounter
CPT/HCPCS: 29505; 73562; 73610; 99283; A4590; E0114

== ENCOUNTER → 2022-09-10 16:23 | Outpatient (BNVA) | payer MEDICARE, OTHER, SELFPAY | PROVIDERS: PCP Nurse Practitioner Family; Referring Provider Physician Assistant; Visit Provider Student in an Organized Health Care Education/Training Program | DX: S82.842A Displaced bimalleolar fracture of left lower leg, initial encounter for closed fracture (principal); M25.462 Effusion, left knee; M25.562 Pain in left knee; W19.XXXA Unspecified fall, initial encounter | CPT/HCPCS: 73610; 99204 ==

== ENCOUNTER 2022-09-12 10:43 | Outpatient (CLI) | payer MEDICARE, OTHER, SELFPAY ==
--- NOTE | 2022-09-12 11:30 | CT_ITS ---
WS: [id number] NONCONTRAST CT LEFT KNEE TECHNIQUE: Noncontrast CT LEFT knee with coronal and sagittal reformatted images. CLINICAL INFORMATION: rule out occult fracture COMPARISON: None. DLP: 526.[address] scans at [facility] use at least one of these dose optimization techniques: automated e xposure control; mA and/or kV adjustment per patient size (includes targeted exams where dose is matc hed to clinical indication); or iterative reconstruction. FINDINGS: Osteopenia. Soft tissue edema about the knee joint. Evidence of chronic healed medial and lateral tib ial plateau fractures and proximal tibia metadiaphysis fracture. Chronic healed fibular head fracture . Large suprapatellar effusion. Vascular calcification. Chondrocalcinosis. Moderate degenerative narr owing medial and lateral joint compartments. Hypertrophic patella. Prominent demineralization proxima l tibial shaft. Subchondral cystic change involving the femoral condyles extending to the intercondyl ar notch. No femoral condylar fractures. No visualized acute fractures. CT/CT knee LT wo con* [id number] IMPRESSION: 1. Osteopenia with soft tissue edema about the knee joint. 2. Large suprapatellar effusion. 3. Chronic fracture deformities involving both the medial and lateral tibial p lateau with evidence of chronic healing. Chronic healed fracture involving the fibula head. 4. Diffuse demineralization involving the proximal tibial shaft similar in blank earance the prior studies. 5. No visualized acute fractures. 6. Moderate degenerative changes medial and lateral joint compartments with ch ondrocalcinosis.
== END 2022-09-12 10:44 | disposition home or self-care (01) ==
LOC: RAD 10:43
PROVIDERS: PCP Nurse Practitioner Family; Visit Provider Student in an Organized Health Care Education/Training Program
DX: M25.562 Pain in left knee (principal); M85.88 Other specified disorders of bone density and structure, other site; M11.262 Other chondrocalcinosis, left knee
CPT/HCPCS: 73700

== ENCOUNTER 2022-09-14 11:37 | Day surgery (SDC) | payer MEDICARE, OTHER, SELFPAY ==
[2022-09-14] VITALS (16 sets, daily range): BP systolic 69–108; BP diastolic 50–69; PULSE 83–115; RESP 16–21; TEMP 36.3–37; O2SAT 92–99
--- NOTE | 2022-09-14 12:27 | W.PM.OPSUD ---
Surgery/Procedure H&P Update DATE OF PROCEDURE: September 14, 2022 DATE H&P PERFORMED: 09/10/22 CHANGES TO PREVIOUS DOCUMENTATION: Patient seen and examined this morning. His soft tissue envelope is amenable for surgery as a positive wrinkle sign to the left lower extremity ankle. He has normal ecchymosis and swelling but is amenable for surgical intervention given he has positive wrinkle sign. He still complaining of some pain to his left knee his CT scan was negative for any acute fracture dislocation. We will aspirate his left knee and inject lidocaine just for pain relief. He was complaining of some right knee pain now as well. He does have a palpable joint effusion he has no tenderness to palpation over the tibial plateau or distal femur but we will obtain x-rays intraoperatively of the right knee and plan for additionally a right knee joint aspiration and injection of lidocaine for pain relief. Plan will be for him to be in a splint postoperatively be nonweightbearing to the left lower extremity and will follow-up with me in the office in 2 weeks. We will resume his Eliquis tomorrow. Patient understands and agrees with current plan. All questions answered. PRIMARY INDICATION FOR PROCEDURE: Left bimalleolar ankle fracture Bilateral knee joint effusions PLANNED PROCEDURE: Operation Date: 09/14/22 14:25 Proposed Procedures p Left ankle bimalleolar fracture ORIF [id number], with possible syndesmotic [id number], T14.8XXA(Left) - David Bello DO
[2022-09-14] MEDS: sodium chloride 0.9% 1,000 ML 30 ML IV (13:03)
[2022-09-14] MEDS: acetaminophen 1,000 MG/100 ML PIGGYBACK 400 MG IV (13:05)
[2022-09-14 13:09] LABS: Hematocrit 37.8 % (42.0-52.0); Hemoglobin 12.3 g/dL (11.7-16.6)
[2022-09-14] MEDS: ketorolac 30 mg/mL INJ IVP (13:15)
--- NOTE | 2022-09-14 13:18 | ANES.PROC ---
Anesthesia Procedures Procedure/Date: 09/14/22 Nerve Block ^: Nerve Block 1: Main Anesthesia: general anesthesia Time Out Performed: Yes Consent: requested by attending/covering physician, from patient, from other, risks and benefits reviewed and patient agrees to proceed Nerve block location: popliteal (L) Anesthesia monitors applied: pulse oximetry, EKG, BP cuff and oxygen Nerve block position: supine Anesthetic Used: ropivicaine 0.5% (30 ml) and with decadron (4 mg) Ultrasound used to: recognize landmarks Nerve Stimulator Used?: No Interscalene/Femoral BLK: 4 stimuplex 21 g needle used for position and inplane approach, visualize local anesthetic spread and no vascular puncture identified Injection: neg aspiration of heme Patient Tolerated Procedure: well Complications: none
[2022-09-14 13:26] LABS: Alanine Aminotransferase 31 U/L (0-41); Albumin Level 3.5 g/dL (3.5-5.2); Alkaline Phosphatase 171 U/L (40-130); Anion Gap 17.6 (5-19); Aspartate Amino Transferase 44 U/L (0-40); Blood Urea Nitrogen 43 mg/dL (8-23); Calcium 9.6 mg/dL (8.5-10.5); Carbon Dioxide 26 mmol/L (22-29); Chloride 95 mmol/L (98-107); Globulin 3.7 g/dL (1.3-4.6); Glucose 149 mg/dL (65-115); Osmolality Calculated 294 mOsm/kg (285-295); Potassium 3.6 mmol/L (3.5-5.1); Sodium 135 mmol/L (136-145); Total Bilirubin 1.3 mg/dL (0.15-1.2); Total Protein 7.2 g/dL (6.6-8.7)
--- NOTE | 2022-09-14 13:51 | ECG_ITS ---
[facility] Test Date: 2022-09-14 Pat Name: Darien Recinos Department: Room: Gender: Male [employer]rier: : 1945 Requested By: Nancy Leblanc Order Number: [id number] Kylee MD: Pavan Peraza M.D. Measurements Intervals [place] Rate: 107 P: 0 DE: 0 QRS: 48 QRSD: 85 T: 1 QT: 314 QTc: 419 Interpretive Statements ATRIAL FIBRILLATION WITH RAPID VENTRICULAR RESPONSE NONSPECIFIC ST & T-WAVE ABNORMALITY ABNORMAL RHYTHM ECG Compared to ECG 01/13/2021 16:06:51 No significant changes Electronically Signed On 09-14-2022 16:23:09 WIRE STITCHER OPERATOR by Pavan Peraza M.D. [email or web address]
[2022-09-14] MEDS: ceFAZolin 2,000 MG in sodium chloride 0.9% (plus) 50 ML 100 MG IV (14:04)
[2022-09-14] MEDS: lidocaine 2% INJ 20 mL 40 ML INJECTION (14:54)
--- NOTE | 2022-09-14 15:42 | P.OP_ITS ---
Brief Operative Note Date of procedure: 09/14/22 Pre-op diagnosis: Left bimalleolar ankle fracture, bilateral knee joint effusi ons Post-op diagnosis: same Procedure Done: Left bimalleolar ankle fracture open reduction internal fixation (medial malleolus fixation and distal fibula fixation) Left knee joint aspiration and lidocaine injection Right knee joint aspiration and lidocaine injection Surgeon: David Bello Estimated blood loss (mL): 10 Complications: none Post-op Plan: Patient taken to PACU in stable condition recovering well. Patient will receive appropriate discharge instruction as well as pain medication postoperatively we will resume his home Eliquis for DVT prophylaxis. Patient's intraoperative bila teral knee joint aspirates were sent for crystal analysis. We will follow-up with these. Patient in a splint for the left lower extremity and plan for nonweightbearing left lower extremity. Patient will follow-up with me in the office in 2 weeks. Patient understands agrees with current plan. All questions answered. Condition: stable Disposition: same day Coding Level of Care Code Acute Code for Dada Wood
--- NOTE | 2022-09-14 15:42 | P.OP_ITS ---
Operative Report Date of procedure: September 14, 2022 Pre-op diagnosis: Preop Diagnosis Left bimalleolar ankle fracture , bilateral knee joint effusions Post-op diagnosis: Same Procedure done: Left bimalleolar ankle fracture open reduction internal fixation (medial malleolus fixation and lateral malleolus fixation) Left knee joint aspiration with lidocaine injection Right knee joint aspiration with lidocaine injection Implants: Michael 5 hole distal fibula anatomic plate 2.7 mm interfragmentary lag screw Combination of locking and nonlocking screws proximally and distally. Medial malleolus fixation: 2 x 4.0mm by 40mm partially-threaded cannulated screws Specimens removed/disposition: Left knee joint aspirate-100 cc bloody tinged fluid sent for crystal analysis Right knee joint aspirate?75 cc yellow straw-colored fluid sent for crystal analysis Surgeon: David Bello DO Estimated blood loss: 10mL 50min IV fluids: See anesthesia record Complications: None Condition: stable Disposition: same day Brief History: Patient's been seen and worked up in the outpatient setting found to have a displaced left ankle bimalleolar fracture. He underwent stress x-ray in the office and was found to have significant displacement and instability of the left ankle. Given his age is still reasonably active and with goals for anatomic reduction with hope of earlier ankle range of motion and sooner weightbearing compared to nonoperative treatment would recommend surgical intervention. We talked in detail his treatment options as far as nonoperative and operative intervention and ultimately through shared decision making he would like to proceed with left ankle open reduction internal fixation. He was given a Tubigrip in the office placed in a splint and guide on strict elevation in his splint and dressing were taken down in the preoperative area today and he had significant resolution of his swelling and had a positive wrinkle sign showing soft tissue envelope was amenable for surgical intervention today. Patient had held his Eliquis the day prior and will resume it postoperatively. In the office he did have a joint effusion of the left knee I did order stat CT scan which showed this showed no acute fracture or dislocation of the left knee he does have significant degenerative changes and he has had a previously healed nonoperative tibial plateau fracture which shows these chronic changes but no acute injury noted he does have a joint effusion. We talked about aspirating this effusion for pain relief and injecting lidocaine. He states his right knee is hurting as well which she does have a palpable joint effusion and no images were performed of this we talked about treatment options and recommended that we will perform x-rays and surgery of the right knee as well as perform an aspiration of the fluid and lidocaine this ultimately will be just to help patient with mobility and pain. Through shared decision-making he agrees to proceed with this we will perform bilateral knee joint aspiration and injection as well as left bimalleolar ankle fracture open reduction internal fixation. All questions answered at this time. Procedure: Patient seen evaluated in the preoperative holding area. Consent was reviewed and signed with patient. Correct extremity marked. Patient consent was updated to accommodate bilateral knee joint aspirations as well as we will plan to x-ray the right knee to rule out any acute injury. Splint was taken down and soft tissue envelope of the ankle was visualized and showed to be amenable for surgical intervention as he had positive wrinkle sign. Once seen evaluate by anesthesia and cleared for surgery was taken back to the operative suite. He is transported on the OR table all bony prominences well-padded patient was properly secured to the bed. Ipsilateral hip bump was applied as well as bone foam to the left lower extremity. A tourniquet was applied to the left thigh none sterilely. Once patient underwent anesthesia per the anesthesia department the left lower extremity was then prepped and draped in standard orthopedic fashion. Final timeout performed. Patient received appropriate preoperative antibiotics. Esmarch tourniquet was used exsanguinate the left lower extremity and tourniquet was insufflated to 300 mmHg. A standard direct lateral approach was made to the left distal fibula sharp scalpel was made strictly through skin and then mobilized the soft tissue with a garcia face elevator and elevated the periosteum over the distal fibula. Care was to protect the superficial peroneal nerve as well as peroneal tendons. Hematoma was encountered and evacuated. I then subsequently utilized the elevator as well as sharp scalpel to free up the short oblique fracture line to identify appropriate cortical read. Fracture was open booked and curetted with a dental pick and thoroughly irrigated. Next a [id number] clamp was then used to perform an anatomic reduction of the short oblique distal fibula fracture. Once this was performed I then confirmed appropriate reduction on large fluoroscopic C arm in multiple images. Once satisfied with this I then subsequently drilled and placed a 2.7 mm lag screw in standard fashion that was measured of approp riate length and had excellent fixation and the clamp was removed and reduction maintained and satisfactory. Next I then selected a 5 hole distal fibular locking plate and was held up to the bone in appropriate position then subsequently drilled and placed 1 proximal bicortical locking screw to compress the plate to bone interface. Same fashion I drilled a cortical screw distally to compress the plate to bone distally my fracture was maintained in a satisfied with plate placement. I then subsequently drilled measured and placed locking screws distally and then removed the cortical screw and placed an additional locking screw distally this completed my distal fixation and then subsequently turned my attention proximally I then subsequently drilled measured and placed a combination of lock ing and nonlocking screws proximally. This completed my distal fibula fixation and was found to have an anatomic reduction. Syndesmotic screw holes were left open in case syndesmotic fixation was needed. Next identified on x-ray the medial malleolus fracture. I then performed a standard small direct medial incision centering over the fracture medial malleolus this was a transverse fracture in nature. Sharp scalpel incision was made through skin and then utilizing a garcia face elevator elevated the periosteum off the medial malleolus utilized scalpel to clear off all interposed periosteum of the fracture site and identified appropriate cortical read open book the fracture and thoroughly irrigated the joint and fracture site. Next I took a [id number] reduction clamp to perform fracture reduction and compression. Large C-arm was again brought in and found to have anatomic reduction of the medial malleolus fracture. I then subsequently placed 2 guidewires in parallel fashion transversely across the fracture site with fixation into the physeal scar. These were then confirmed to be in appropriate position on multiple orthogonal images and well maintenance of the medial should er was identified with no screw penetration. Once satisfied was placed I then subsequently measured and then cannulated drill bit drilled the near cortex and placed 2x 4.0mm by 40 mm partially-threaded cannulated screws for to complete my medial fixation over the guidewires. Had excellent fixation and was confirmed to be in appropriate position on multiple orthogonal images on x-ray. Guidepins were then removed satisfied with my medial fixation. I then subsequently turned attention towards final x-rays and AP was then obtained which showed satisfactory bimalleolar ankle fracture open reduction internal fixation with stable fixation. Ankle mortise x-ray was then obtained an external stress test was subsequently performed. No medial clear space widening most noted. At this point in time no need for syndesmotic fixation was noted. This completed ankle fixation. I then took final lateral x-ray which showed appropriate plate placement and fixation. Wound bed was then thoroughly irrigated. Tourniquet deflated hemostasis satisfactory incisions were then closed with interrupted 2-0 Vicryl suture and elpidio. Under sterile aseptic technique I then performed a left knee joint aspiration at the suprapatellar pouch from the lateral aspect of the knee. 18-gauge spinal needle was then subsequently placed and bloody tinged synovial fluid was then withdrawn from the left knee. Roughly 100 mL of bloody tinged synovial fluid was aspirated and sent for crystal analysis as there did appear to be small crystalline deposits appreciated. I then injected 10 cc of of lidocaine into t he joint for pain relief. In same fashion under sterile aseptic technique I prepped out the right knee joint in preparation for right knee joint aspiration at the suprapatellar pouch from the lateral aspect of the knee. 18-gauge spinal needle was subsequently placed and straw-colored yellow synovial fluid was withdrawn from the right knee joint. Crystalline deposits were noted in this as well and this was sent for crystal analysis. In total aspirated 75 mL of synovial yellow straw-colored fluid. Once removed I then injected 10 cc of lidocaine for pain relief into the joint. Standard OpSite's were placed and the knee joint aspiration sites. I then covered the incision the left ankle with Xeroform 4 x 4's ABDs Curlex web roll and a posterior short leg splint was applied to the left lower extremity. This was covered with an Leon wrap. Splint was allowed to cure keeping the patient's foot in ankle dorsiflexion at neutral. Patient was then awakened from anesthesia and taken to PACU in stable condition. Patient tolerated procedure without complications. Disposition: Patient taken to PACU in stable condition recovering well. Splint on in place clean dry and intact as well as aspiration sites of bilateral knees. We will be nonweightbearing to the left lower extremity. Recommend continued elevation. Patient should continue with ice and elevation as needed for pain and swelling will receive appropriate discharge structure as well as pain medication postoperatively. We will follow-up on his crystal analysis of his joint fluid aspirates. We will follow-up with me in the office in 2 weeks. Patient understands and agrees with current plan. All questions answered.
--- NOTE | 2022-09-14 15:42 | PM.PACU ---
PACU note Narrative: Patient taken to PACU in stable condition recovering well. Splint on in place clean dry and intact. Patient toes are warm well perfused. Patient is able to wiggle toes. Sensation intact light touch distally. DP pulse palpable. Exam: awake Disposition: discharged
--- NOTE | 2022-09-14 15:50 | XR_ITS ---
WS: [id number] XR ankle LT 2V [id number] REASON FOR EXAM: OR PICS FINDINGS: Plate and screw fixation of. Syndesmotic spiral fracture of the distal left fibula. Screw fixation of transverse medial malleolar fracture. Fracture fragments in surgical appliances are in proper position and alignment. Ankle mortise is intact. XR/XR ankle LT 2V [id number] IMPRESSION: Intraoperative fixation of fibular and tibial fractures as above.
[2022-09-14] MEDS: sodium chloride 0.9% 500 ML 999 ML IV (16:26)
[2022-09-14 16:42] LABS: Appearance Synovial Fluid BLOODY (CLEAR); Appearance Synovial Fluid CLOUDY (CLEAR); Color Synovial Fluid RED (PALE YELLOW); Color Synovial Fluid YELLOW (PALE YELLOW)
[2022-09-14 16:43] LABS: Crystals, Fluid SENT; Cyto Order Verification No Order
[2022-09-14 16:44] LABS: Crystals, Fluid SENT; Cyto Order Verification No Order
[2022-09-14 17:58] LABS: RBC Synovial Fluid 289 10^3/uL (0-0); RBC Synovial Fluid 5 10^3/uL (0-0); Synovial Fluid Mononuclear # 0.533 10^3/uL; Synovial Fluid Mononuclear # 1.005 10^3/uL; WBC Synovial Fluid 12796 /uL (0-150); WBC Synovial Fluid 13208 /uL (0-150)
--- NOTE | 2022-09-14 18:53 | ANE.PACU2 ---
Inpatient post-anesthesia follow up: Airway intact: Yes Vital signs: Temperature 97.9 F Pulse Rate 100 Respiratory Rate 18 Blood Pressure 105/65 Pulse Oximetry 96 Oxygen Delivery Me thod Room Air Oxygen Flow Rate 1 Fraction of Inspir ed Oxygen Hydration adequate: Yes Nausea and vomiting: No Pain level: 1 Mental status: Baseline Additional Comments: Isolated incident of systolic <70 mmHg during phase I recovery, patient remained asymptomatic during episode (proper mentation, no lightheadedness). Out of caution, Patient informed to go to ER if experiences any lightheadedness, chest pain, or shortness of breath, or feeling of racing heart.
== END 2022-09-14 17:55 | disposition home or self-care (01) ==
PROVIDERS: Anesthesiology; PCP Nurse Practitioner Family; Visit Provider Student in an Organized Health Care Education/Training Program
PROC: (CPT 20610; principal; 2022-09-14 14:15)
DX: S82.842A Displaced bimalleolar fracture of left lower leg, initial encounter for closed fracture (principal); X58.XXXA Exposure to other specified factors, initial encounter; M25.462 Effusion, left knee; M25.461 Effusion, right knee; I12.9 Hypertensive chronic kidney disease with stage 1 through stage 4 chronic kidney disease, or unspecified chronic kidney disease; N18.30 Chronic kidney disease, stage 3 unspecified; K21.9 Gastro-esophageal reflux disease without esophagitis; E78.2 Mixed hyperlipidemia; Z87.891 Personal history of nicotine dependence
CPT/HCPCS: 20610; 27814; 36415; 73600; 76000; 80053; 80503; 85014; 85018; 89050; 93005; C1713; J0131; J0690; J1100; J1885; J2405; J2704; J2795; J3010; J7030; J7040

== ENCOUNTER → 2022-10-04 08:19 | Outpatient (BNVA) | payer MEDICARE, OTHER, SELFPAY | PROVIDERS: PCP Nurse Practitioner Family; Visit Provider Student in an Organized Health Care Education/Training Program | DX: S82.842D Displaced bimalleolar fracture of left lower leg, subsequent encounter for closed fracture with routine healing (principal); X58.XXXD Exposure to other specified factors, subsequent encounter | CPT/HCPCS: 73610; 99024 ==

== ENCOUNTER → 2022-10-22 10:37 | Outpatient (BNVA) | payer MEDICARE, OTHER, SELFPAY | PROVIDERS: PCP Nurse Practitioner Family; Visit Provider Student in an Organized Health Care Education/Training Program | DX: S82.842A Displaced bimalleolar fracture of left lower leg, initial encounter for closed fracture (principal); X58.XXXA Exposure to other specified factors, initial encounter | CPT/HCPCS: 73610; 99024 ==

== ENCOUNTER 2022-10-22 14:51 | Outpatient (CLI) | payer MEDICARE, OTHER, SELFPAY | END 2022-10-22 14:52 | disposition home or self-care (01) | LOC: SPT 14:52 | PROVIDERS: PCP Nurse Practitioner Family; Visit Provider Student in an Organized Health Care Education/Training Program | DX: Z46.89 Encounter for fitting and adjustment of other specified devices (principal); S82.842D Displaced bimalleolar fracture of left lower leg, subsequent encounter for closed fracture with routine healing; X58.XXXD Exposure to other specified factors, subsequent encounter | CPT/HCPCS: 97760; L1902 ==

== ENCOUNTER → 2022-11-05 10:03 | Outpatient (BNVA) | payer MEDICARE, OTHER, SELFPAY | PROVIDERS: PCP Nurse Practitioner Family; Visit Provider Nurse Practitioner Family | DX: I10 Essential (primary) hypertension (principal); E78.2 Mixed hyperlipidemia; R73.9 Hyperglycemia, unspecified; I48.91 Unspecified atrial fibrillation; E55.9 Vitamin D deficiency, unspecified; R33.9 Retention of urine, unspecified | CPT/HCPCS: 80053; 80061; 82306; 83036; 85025 ==

== ENCOUNTER → 2022-11-19 11:20 | Outpatient (BNVA) | payer MEDICARE, OTHER, SELFPAY | PROVIDERS: PCP Nurse Practitioner Family; Visit Provider Student in an Organized Health Care Education/Training Program | DX: Z98.890 Other specified postprocedural states (principal); S82.842A Displaced bimalleolar fracture of left lower leg, initial encounter for closed fracture; X58.XXXA Exposure to other specified factors, initial encounter | CPT/HCPCS: 73610; 99024 ==

== ENCOUNTER → 2023-01-21 10:39 | Outpatient (BNVA) | payer MEDICARE, OTHER, SELFPAY | PROVIDERS: PCP Nurse Practitioner Family; Visit Provider Urology | DX: N35.919 Unspecified urethral stricture, male, unspecified site (principal); R33.9 Retention of urine, unspecified; R97.20 Elevated prostate specific antigen [PSA] | CPT/HCPCS: 51741; 51798; 81003; 99213 ==

== ENCOUNTER → 2023-02-18 10:57 | Outpatient (BNVA) | payer MEDICARE, OTHER, SELFPAY | PROVIDERS: PCP Nurse Practitioner Family; Visit Provider Student in an Organized Health Care Education/Training Program | DX: Z98.890 Other specified postprocedural states (principal); S82.842D Displaced bimalleolar fracture of left lower leg, subsequent encounter for closed fracture with routine healing; X58.XXXD Exposure to other specified factors, subsequent encounter | CPT/HCPCS: 73610; 99213 ==

== ENCOUNTER → 2023-05-06 09:22 | Outpatient (BNVA) | payer MEDICARE, OTHER, SELFPAY | PROVIDERS: PCP Nurse Practitioner Family; Visit Provider Nurse Practitioner Family | DX: I10 Essential (primary) hypertension (principal); E78.2 Mixed hyperlipidemia; R73.9 Hyperglycemia, unspecified; E55.9 Vitamin D deficiency, unspecified; Z23 Encounter for immunization; C61 Malignant neoplasm of prostate; R60.0 Localized edema; R33.9 Retention of urine, unspecified; N35.919 Unspecified urethral stricture, male, unspecified site | CPT/HCPCS: 80053; 80061; 82306; 83036; 84443; 85025 ==

== ENCOUNTER → 2023-06-03 10:06 | Outpatient (BNVA) | payer MEDICARE, OTHER, SELFPAY | PROVIDERS: PCP Nurse Practitioner Family; Visit Provider Nurse Practitioner Family | DX: E87.5 Hyperkalemia (principal) | CPT/HCPCS: 80048 ==

== ENCOUNTER → 2023-10-16 14:24 | Outpatient (BNVA) | payer MEDICARE, OTHER, SELFPAY | PROVIDERS: PCP Nurse Practitioner Family; Visit Provider Internal Medicine | DX: I48.91 Unspecified atrial fibrillation (principal); E78.2 Mixed hyperlipidemia; Z87.891 Personal history of nicotine dependence; K21.9 Gastro-esophageal reflux disease without esophagitis; I12.9 Hypertensive chronic kidney disease with stage 1 through stage 4 chronic kidney disease, or unspecified chronic kidney disease; N18.30 Chronic kidney disease, stage 3 unspecified; Z79.01 Long term (current) use of anticoagulants | CPT/HCPCS: 99214 ==

== ENCOUNTER → 2023-11-05 09:28 | Outpatient (BNVA) | payer MEDICARE, OTHER, SELFPAY | PROVIDERS: PCP Nurse Practitioner Family; Visit Provider Nurse Practitioner Family | DX: C61 Malignant neoplasm of prostate (principal); E78.2 Mixed hyperlipidemia; R73.9 Hyperglycemia, unspecified; E55.9 Vitamin D deficiency, unspecified | CPT/HCPCS: 80053; 80061; 82306; 83036; 84153; 85025 ==

== ENCOUNTER → 2023-12-17 10:50 | Outpatient (BNVA) | payer MEDICARE, OTHER, SELFPAY | PROVIDERS: PCP Nurse Practitioner Family; Visit Provider Nurse Practitioner Family | DX: Z12.5 Encounter for screening for malignant neoplasm of prostate (principal) | CPT/HCPCS: G0103 ==

== ENCOUNTER → 2024-05-06 09:01 | Outpatient (BNVA) | payer MEDICARE, OTHER, SELFPAY | PROVIDERS: PCP Nurse Practitioner Family; Visit Provider Nurse Practitioner Family | DX: E55.9 Vitamin D deficiency, unspecified (principal); I10 Essential (primary) hypertension | CPT/HCPCS: 80053; 80061; 82306; 83036; 84443; 85025 ==

== ENCOUNTER 2024-05-25 09:39 | Outpatient (CLI) | payer MEDICARE, OTHER, SELFPAY ==
--- NOTE | 2024-05-25 09:40 | USR_ITS ---
PROCEDURE INFORMATION: Exam: US Retroperitoneal, Complete, Kidneys and Bladder Exam date and time: 05/25/2024 10:05 AM Age: 79 years old Clinical indication: Other: Urinary retention; Additional info: Urinary retention, with bladder TECHNIQUE: Imaging protocol: Real-time ultrasound of the retroperitoneum with image documentation. Complete exam focused on the bilateral kidneys and urinary bladder. COMPARISON: CT abdomen pelvis wo con [id number] 01/16/2021 2:00 PM FINDINGS: Right kidney: Stable multi cystic right kidney No stones. No hydronephrosis. 11 cm x 6.6 cm x 7 cm Left kidney: No stones. No hydronephrosis. 11.6 cm x 6.4 cm x 8 cm. Posterior left cyst 2.7 cm x 2.3 cm x 2.4 cm Urinary bladder: Unremarkable. Prevoid 54 cc, postvoid 21 cc US/US renal BI with PV bladder IMPRESSION: 1. Large show multi cystic right kidney stable since prior 2. Benign left renal cyst otherwise negative exam. 3. Urinary bladder unremarkable.. Small residual postvoid volume are
== END 2024-05-25 09:40 | disposition home or self-care (01) ==
LOC: RAD 09:40
PROVIDERS: PCP Nurse Practitioner Family; Visit Provider Nurse Practitioner Family
DX: Q61.02 Congenital multiple renal cysts (principal); R33.9 Retention of urine, unspecified
CPT/HCPCS: 76770; 76857

== ENCOUNTER → 2024-10-14 13:52 | Outpatient (BNVA) | payer MEDICARE, OTHER, SELFPAY | PROVIDERS: PCP Nurse Practitioner Family; Visit Provider Internal Medicine | DX: I48.91 Unspecified atrial fibrillation (principal); I10 Essential (primary) hypertension; E78.2 Mixed hyperlipidemia; Z87.891 Personal history of nicotine dependence; K21.9 Gastro-esophageal reflux disease without esophagitis; Z79.01 Long term (current) use of anticoagulants | CPT/HCPCS: 99214 ==

== ENCOUNTER → 2024-11-04 11:05 | Outpatient (BNVA) | payer MEDICARE, OTHER, SELFPAY | PROVIDERS: PCP Nurse Practitioner Family; Visit Provider Nurse Practitioner Family | DX: I10 Essential (primary) hypertension (principal); R73.9 Hyperglycemia, unspecified | CPT/HCPCS: 80053; 80061; 83036; 85025 ==

== ENCOUNTER → 2024-11-10 08:24 | Outpatient (BNVA) | payer MEDICARE, OTHER, SELFPAY | PROVIDERS: PCP Nurse Practitioner Family; Visit Provider Nurse Practitioner Family | DX: C61 Malignant neoplasm of prostate (principal) | CPT/HCPCS: 84153 ==

== ENCOUNTER → 2025-02-09 11:07 | Outpatient (BNVA) | payer MEDICARE, OTHER, SELFPAY | PROVIDERS: PCP Nurse Practitioner Family; Visit Provider Nurse Practitioner Family | DX: I10 Essential (primary) hypertension (principal); E55.9 Vitamin D deficiency, unspecified | CPT/HCPCS: 80053; 80061; 82306; 85025 ==

== ENCOUNTER → 2025-05-05 11:10 | Outpatient (BNVA) | payer MEDICARE, OTHER, SELFPAY | PROVIDERS: PCP Nurse Practitioner Family; Visit Provider Nurse Practitioner Family | DX: I10 Essential (primary) hypertension (principal); E78.2 Mixed hyperlipidemia; E55.9 Vitamin D deficiency, unspecified | CPT/HCPCS: 80053; 80061; 82306; 85025 ==